=== PATIENT | female | born 1990 | race Caucasian/White ===

== ENCOUNTER 2016-05-21 10:51 | Emergency (ER) | payer OTHER ==
[~2016-05-21] VITALS: Ht 167.6 cm; Wt 100.0 kg
[2016-05-21 10:56] VITALS: BP 125/75; PULSE 87; RESP 16; O2SAT 96
[2016-05-21] MEDS ORDERED: 0.9% Sodium Chloride 1,000 ML IV ONE (11:07)
[2016-05-21] MEDS ORDERED: Pantoprazole 4 mg/mL 10 mL Inj IVPUSH ONE (11:10)
[2016-05-21 11:48] LABS: BASOPHILS % (AUTO) 0.2 % (0-3); EOSINOPHILS % (AUTO) 2.1 % (0-5); Mean Corpuscular Hemoglobin 25.9 pg (27.0-35.0); Mean Corpuscular Volume 80.3 fL (81-100); NEUTROPHILS % (AUTO) 61.4 % (40-74); Platelet Count 200 bil/L (150-400)
--- NOTE | 2016-05-21 12:09 | ED.REPORT ---
HPI-General Illness Date of Service May 21, 2016 ED Provider: Boston Beckett PA-C Dacia is a 25-year-old female with developmental disability who presents with multiple complaints. Patient states she has pain in her spinal cord from the top of her neck down to her feet. She describes the pain in her mid back as "sharp glass" and says it been lasting for 2 days She reports that she vomited this morning with a small amount of blood in it. She also reports she had a large, painful stool this morning with some bright red blood on the paper. She complains of a sore throat, ear pain and generalized abdominal pain as well as dysuria. She reports that she feels feverish and has body aches and a cough. Review of systems is diffusely positive. Patient states that she lives in [place] and is in [place] to visit her grandmother. She states that "they do not like me" at the emergency room [place]. She also states that "my friend had symptoms like these and they let her stay for 3 days, to make sure she got good care." Records indicates 8 visits to emergency departments in the region over the last 5 weeks. Nursing Notes Stated Complaint: PAIN Chief Complaint: General Complaint Nursing Notes Reviewed: Yes Allergies: Coded Allergies: Penicillins (Verified Allergy, Severe, Anaphylaxis, 05/21/16) General Time Seen by MD: 10:59 Chief Complaint Back pain Review of Systems Negative unless stated otherwise in history of present illness Physical Exam General: Well appearing, well developed, well nourished, no acute distress. Head: Atraumatic, normocephalic. No mastoid tenderness. Eyes: No scleral icterus or injection. No discharge. PERRL. Vision grossly intact. Ears: Pinna and tragus nontender with manipulation. External auditory canal patent, atraumatic and without discharge. Tympanic membrane treviño, shiny and translucent without fluid, bulging, retraction or perforation. Hearing grossly intact. Nose: Symmetrical, nares patent without discharge. No frontal or maxillary sinus tenderness. Mouth/pharynx: normal dentition, mucus membranes moist. Tonsils 2+ and symmetrical, uvula midline. Pharynx noninjected, no cobblestoning or discharge. Voice clear. Neck: No tenderness or lymphadenopathy. Trachea midline. Respiratory: No clinically evident cough. Regular rate and rhythm. Breath sounds present, clear to auscultation and equal bilaterally. Cardiovascular: Regular rate and rhythm, without murmur, gallop or rub. No pedal edema. Gastrointestinal: Extremely Mild diffuse tenderness without guarding or rebound. Bowel sounds normoactive. Rectum: Normal to inspection, no external hemorrhoids or fissures. Normal tone , no internal masses, no tenderness. Produces normal brown stool, no reese blood, guaiac-negative. Skin: Warm and dry. Back: Normal to inspection, no scoliosis, no tenderness to palpation. Neurological: Negative pronator drift. Deltoid abduction, wrist flexion and extension, finger flexion and abduction strength 5/5 B/L. Sensation to light touch intact over deltoid as well as first, third and fifth digits B/L. Biceps, triceps and brachioradialis reflexes 2+ B/L. Normal gait, toe walk, heel walk, Romberg. Hip flexion, knee extension, ankle dorsiflexion and plantarflexion strength 5/5 B/L. Patellar and Achilles reflexes present and equal B/L. Sensation to sharp touch intact at medial leg, dorsal foot and lateral foot B/L. negative straight leg raise, negative cross straight leg raise. Patient spontaneously raises both her legs show me her "swollen calves". Psychological: Alert and oriented. Speech appropriate, linear and logical. Very interested in being admitted to the hospital. Vital Signs Vital Signs Date Time Temp Pulse Resp B/P Pulse Ox O2 Delivery O2 Flow Rate FiO2 05/21/16 15:13 36.4 92 18 128/70 98 Room Air 05/21/16 15:03 36.4 92 18 129/74 98 Room Air 05/21/16 10:56 36.7 87 16 125/75 96 Room Air Initial VS: Reviewed, Vital signs normal Interpretation & Diagnostics Interpretation & Diagnostics: Influenza A & B are negative Stool guaiac negative Lab Results Interpretation Result Diagram: 05/21/16 1141 05/21/16 1141 Test 05/21/16 11:15 05/21/16 11:41 05/21/16 12:30 Urine Color Straw (YELLOW) Urine Appearance Hazy (CLEAR,HAZY) Urine pH 7.5 (5.0-8.0) Urine Specific [place] 1.020 (1.003-1.035) Urine Protein Negativemg/dL (NEG,TRACE) Urine Glucose (UA) Negativemg/dL (NEGATIVE) Urine Ketones Negativemg/dL (NEGATIVE) Urine Occult Blood Negative (NEGATIVE) Urine Nitrite Negative (NEGATIVE) Urine Bilirubin Negative (NEGATIVE) Urine Urobilinogen Normalmg/dL (NORMAL) Urine Leukocyte Esterase Negative (NEGATIVE) Urine RBC 0-2/hpf (0-2) Urine WBC 0-5/hpf (0-5) Urine Epithelial Cells Occasional/hpf (NONE-MOD) Urine Crystals None seen (NONE SEEN) Urine Bacteria Few/hpf (NONE-FEW) Urine Hyaline Casts None/lpf (NONE) Urine Granular Casts None seen (NONE SEEN) Urine Waxy Casts None seen (NONE SEEN) Urine Red Blood Cell Casts None seen (NONE SEEN) Urine White Blood Cell Casts None seen (NONE SEEN) Urine Mucus Present (None Seen) Urine Trichomonas None seen (NONE SEEN) Urine Yeast None (NONE SEEN) Urinalysis Comment None Urine Culture Reflexed Not indicated Hold Urine Received (Received) White Blood Count 8.0th/mm3 (3.8-10.1) Red Blood Count 4.51mil/mm3 (3.90-5.20) Hemoglobin 11.7g/dL (12.0-15.6) Hematocrit 36.2% (35.0-46.0) Mean Corpuscular Volume 80.3fL (81-100) Mean Corpuscular Hemoglobin 25.9pg (27.0-35.0) Mean Corpuscular Hemoglobin Concent 32.3% (32.0-37.0) Red Cell Distribution Width 15.9% (12.3-15.4) Platelet Count 200bil/L (150-400) Neutrophils (%) (Auto) 61.4% (40-74) Lymphocytes (%) (Auto) 26.2% (14-46) Monocytes (%) (Auto) 10.0% (4-12) Eosinophils (%) (Auto) 2.1% (0-5) Basophils (%) (Auto) 0.2% (0-3) Erythrocyte Sedimentation Rate 11mm/hr (0-32) Sodium Level 141mEq/L (134-144) Potassium Level 3.9mEq/L (3.5-5.2) Chloride Level 104mEq/L (97-108) Carbon Dioxide Level 24mmol/L (18-29) Blood Urea Nitrogen 14mg/dL (6-20) Creatinine 0.70mg/dL (0.57-1.00) Estimat Glomerular Filtration Rate 147mL/min (>59) Glucose Level 104mg/dL (60-99) Calcium Level 9.1mg/dL (8.5-10.1) Total Bilirubin 0.2mg/dL (0.0-1.2) Aspartate Amino Transf (AST/SGOT) 14U/L (0-50) Alanine Aminotransferase (ALT/SGPT) 17U/L (0-32) Alkaline Phosphatase 68U/L (25-150) Total Protein 6.8g/dL (6.4-8.4) Albumin 4.4g/dL (3.4-5.0) Hold Rod Top Tube Received (Received) Hold Purple Top Tube Received (Received) Hold Blue Top Tube Received (Received) Hold [place] Top Tube Received (Received) Re-Eval/Medical Decision Med Decision/Clinical Course 25-year-old female with developmental disability presents with multiple complaints, including "spinal cord pain" from the base of her skull to her feet. She also complains of vomiting this morning with a small amount of blood as well as painful stool with blood. Also complains of sore throat, ear pain, abdominal pain, dysuria, fever, myalgia. Physical exams extremely reassuring, with normal neurological examination, soft abdomen, negative stool guaiac and normal brown stool. I believe she has musculoskeletal back pain as opposed to meningitis or epidural abscess. I do not find it likely that she has an upper GI bleed. Flu swab is negative. Review of the records shows that she has many emergency department visits in the region over the last 6 weeks. She is very extended being admitted to the hospital and is disappointed when I tell her I had no justification for that. She tells me that she lives with a friend who helps her, but her friend is out of town this weekend. She tells me that the friend suggested she present to the emergency department and try to be admitted for the weekend. I arranged a foster care social worker consult. It is determined that she has a home in [place] but she does not want to be there because her roommate has many cats which father. She contacts the local homeless long-term but is denied a bed, likely because she has a home in [place]. She has a bus pass and is able to travel home. Discharged her with instructions for [id number] analgesia, advising primary care follow-up providing return precautions. Time of Eval: 12:47 Re-Evaluation/Progress Note: Patient states continued pain in her back. When I attempt to explain her normal physical exam findings to her, she asks "you are not going to discharge we are you? One of the reasons I keep coming to the hospital is because they will not admit me in [place]" Time of Eval: 13:11 Re-Evaluation/Progress Note: Discussed the possibility of admission with the patient. I told her that this time I see nothing to justify admitting her to the hospital. When I inquired about her living situation she tells me that she is developmentally disabled and lives with a friend who helps her keep track of taking medications. She further tells me that her Friend is out of town this weekend and suggested to her that she come to the hospital to be admitted "at least for the weekend." Patient admits she is worried because she does not know where to stay [facility]. I arranged social work referral. Discharge & Departure Primary Impression: Back pain Back pain location: back pain in unspecified location Chronicity: chronic Back pain laterality: unspecified Qualified Code: M54.9 - Dorsalgia, unspecified Disposition: Home Discharge Condition All VS Reviewed: Yes Condition: Stable Patient Instructions: Acute Low Back Pain (ED) Additional Instructions: Evaluation for several complaints in the emergency department. History, physical and labs were highly reassuring that you do not have meningitis or infection in your spine. Also reassuring that you do not have bleeding in your stomach or intestines. There is no history of trauma to suggest that we should perform x-rays or CT scan on your back today. I believe we have ruled out dangerous causes of your back pain and other symptoms. I do not see any reason to perform more testing or admit you to the hospital. You had a discussion with our foster care social worker, and it appears your best course of action will be to return home to [facility]. Rest your back as much as possible. The pain is best treated with 600 mg of ibuprofen (Advil, Motrin) every 6 hours, or 1000 mg of acetaminophen (Tylenol) every 6 hours. These drugs can be taken at the same time for more severe pain. Follow up with your primary care provider if your back pain continues. Return to emergency department for any new or worsening symptoms including numbness between your legs, loss of bowel control, high fever or increasing pain. Referrals: Ranjan Ng MD (Family) EDSupervising Provider for APC: Lalo Anglin DO copies to: Ranjan Ng MD, Seth PA-C May 21, 2016 12:08
[2016-05-21 13:58] LABS: APPEARANCE,URINE HAZY (CLEAR,HAZY); COLOR,URINE STRAW (YELLOW); OCCULT BLOOD,URINE NEGATIVE (NEGATIVE); PH,URINE 7.5 (5.0-8.0); UROBILINOGEN,URINE NORMAL (NORMAL)
[2016-05-21 15:03] VITALS: BP 129/74; PULSE 92; RESP 18; O2SAT 98
[2016-05-21 15:13] VITALS: BP 128/70; PULSE 92; RESP 18; O2SAT 98
== END 2016-05-21 15:20 | disposition home or self-care (01) ==
LOC: EDBD 10:51 → SED 10:51 → EDUNIT# 10:51 → SED 15:20
DX: M54.9 Dorsalgia, unspecified (principal); K92.0 Hematemesis; K92.1 Melena; J02.9 Acute pharyngitis, unspecified; H92.09 Otalgia, unspecified ear; R10.84 Generalized abdominal pain; R30.0 Dysuria; R50.9 Fever, unspecified; R05 Cough; M79.1 Myalgia; F81.9 Developmental disorder of scholastic skills, unspecified; Z88.0 Allergy status to penicillin
CPT/HCPCS: 36415; 80053; 81000; 81025; 82272; 85025; 85651; 87804; 96361; 96374; 96375; 99285; J7030

== ENCOUNTER 2016-07-17 12:22 | Emergency (ER) | payer OTHER ==
[~2016-07-17] VITALS: Ht 170.2 cm; Wt 110.9 kg
[2016-07-17 12:25] VITALS: BP 134/78; PULSE 75; RESP 16; O2SAT 97
[2016-07-17] MEDS ORDERED: FOLI1TAB18 PO (12:29)
[2016-07-17] MEDS ORDERED: CITA20TA11 PO (12:29)
[2016-07-17] MEDS ORDERED: FERR-83 PO (12:29)
[2016-07-17] MEDS ORDERED: OLAN5TAB PO (12:29)
--- NOTE | 2016-07-17 12:32 | ED.REPORT ---
HPI-Abd Pain F Under 40 Date of Service Jul 17, 2016 ED Provider: Shabnam Tsai MD Patient is a 25 year old female with a history of frequent ED visits for similar symptoms presenting to the ED complaining of abdominal pain onset two weeks ago. She describes the pain as feeling bloated or with a "hard abdomen." The patient admits to vomiting, nausea, chills and vaginal spotting but denies changes in appetite, changes in bladder or bowel habits, or fever. The patient is sexually active with one male partner and is currently not on control. She states that she does not have normal menstrual cycles and her last menstrual period was in 03/2016. The patient had a negative test at Urgent Care today. Nursing Notes Stated Complaint: ABD PAIN Chief Complaint: Female Abdominal Pain Nursing Notes Reviewed: Yes Allergies: Coded Allergies: Penicillins (Verified Allergy, Severe, Anaphylaxis, 07/17/16) latex (Verified Allergy, Intermediate, rash, 07/17/16) Scheduled Citalopram (Citalopram) 20 Mg Tablet 20 MG PO DAILY Ferrous Sulfate (Ferrous Sulfate) 325 Mg Tablet 325 MG PO DAILY Folic Acid (Folic Acid) 1 Mg Tablet 1 MG PO DAILY Olanzapine (Olanzapine) 5 Mg Tablet 5 MG PO DAILY Ondansetron ODT (Ondansetron ODT) 8 Mg Tab.rapdis 8 MG PO Q8H General Time Seen by MD: 12:32 Chief Complaint Abdominal pain Hx Obtained From: Patient Arrived By: Walk-in Sudden in Onset?: No Onset Occurred: More than a week ago... (2 weeks) Symptom Duration: Since onset Location: : Diffuse Severity: Current: Moderate Severity: Maximum: Moderate Recent Healthcare: Recent doctor visit Past Medical History Past Medical History frequent ED visits to different hospitals for similar symptoms Past Surgical History none reported Smoking History Unknown if Ever Smoker Social History Other Social History: Ambulatory Status Independent Review of Systems Review of Systems Note: bloating "stomach feels hard" denies changes in bowel or bladder habits Constitutional: Reports: Chills, Fever Respiratory: Denies: Non-productive cough GI: Reports: Abdominal pain, Nausea, Vomiting Female: Reports: Vaginal bleeding - abnl (spotting), Denies: Dysuria Complete sys rev & neg: except as marked. Physical Exam Initial Vital Signs Vital Signs (First) Date Time Temp Pulse Resp B/P Pulse Ox O2 Delivery O2 Flow Rate FiO2 07/17/16 12:25 36.6 75 16 134/78 97 Room Air Initial VS: Reviewed, Vital signs normal General/Constitutional: Awake, Alert, No acute distress Respiratory / Chest: Atraumatic, Breath sounds NL, Breath sounds = bilat, No respiratory distress Cardiovascular: Heart rate NL, Regular rhythm, Heart sounds NL Abdomen: Atraumatic, Soft slight distention general abdominal tenderness, no rebound or guarding Back: Atraumatic, Full range of motion Head / Eyes: Atraumatic, Normocephalic, PERRL, EOMI ENT: Atraumatic, Airway patent, Mucous membranes moist Skin: Atraumatic, Color NL, No rash, Warm, Dry Neurologic: Oriented X3, Speech NL, No motor deficits, No sensory deficits Neck: Atraumatic, Supple, Full range of motion Upper Extremity / MS: Atraumatic, Full range of motion Lower Extremity / Pelvis / MS: Atraumatic, Full range of motion Psychiatric: Affect NL, Mood NL Interpretation & Diagnostics Interpretation & Diagnostics: Abdomen US: IMPRESSION: No sonographic explanation for abdominal distension. No ascites. Dictated by: Bakari Florence M.D. on 07/17/2016 at 13:57 Approved by: Bakari Florence M.D. on 07/17/2016 at 13:58 Lab Results Interpretation Result Diagram: 07/17/16 1305 07/17/16 1305 Test 07/17/16 13:05 07/17/16 14:16 White Blood Count 6.6th/mm3 (3.8-10.1) Red Blood Count 4.51mil/mm3 (3.90-5.20) Hemoglobin 11.6g/dL (12.0-15.6) Hematocrit 36.2% (35.0-46.0) Mean Corpuscular Volume 80.3fL (81-100) Mean Corpuscular Hemoglobin 25.7pg (27.0-35.0) Mean Corpuscular Hemoglobin Concent 32.0% (32.0-37.0) Red Cell Distribution Width 15.7% (12.3-15.4) Platelet Count 220bil/L (150-400) Neutrophils (%) (Auto) 50.9% (40-74) Lymphocytes (%) (Auto) 35.0% (14-46) Monocytes (%) (Auto) 11.5% (4-12) Eosinophils (%) (Auto) 2.1% (0-5) Basophils (%) (Auto) 0.3% (0-3) Sodium Level 137mEq/L (134-144) Potassium Level 4.1mEq/L (3.5-5.2) Chloride Level 101mEq/L (97-108) Carbon Dioxide Level 23mmol/L (18-29) Blood Urea Nitrogen 15mg/dL (6-20) Creatinine 0.55mg/dL (0.57-1.00) Estimat Glomerular Filtration Rate 195mL/min (>59) Glucose Level 106mg/dL (60-99) Calcium Level 9.6mg/dL (8.5-10.1) Total Bilirubin 0.2mg/dL (0.0-1.2) Aspartate Amino Transf (AST/SGOT) 23U/L (0-50) Alanine Aminotransferase (ALT/SGPT) 31U/L (0-32) Alkaline Phosphatase 70U/L (25-150) Total Protein 6.5g/dL (6.4-8.4) Albumin 4.2g/dL (3.4-5.0) Lipase 44U/L (13-60) Hold Rod Top Tube Received (Received) Urine Color Yellow (YELLOW) Urine Appearance Clear (CLEAR,HAZY) Urine pH 5.5 (5.0-8.0) Urine Specific Echo 1.015 (1.003-1.035) Urine Protein Negativemg/dL (NEG,TRACE) Urine Glucose (UA) Negativemg/dL (NEGATIVE) Urine Ketones Negativemg/dL (NEGATIVE) Urine Occult Blood Negative (NEGATIVE) Urine Nitrite Negative (NEGATIVE) Urine Bilirubin Negative (NEGATIVE) Urine Urobilinogen Normalmg/dL (NORMAL) Urine Leukocyte Esterase Negative (NEGATIVE) Urine RBC 0-2/hpf (0-2) Urine WBC 0-5/hpf (0-5) Urine Epithelial Cells Few/hpf (NONE-MOD) Urine Crystals None seen (NONE SEEN) Urine Bacteria None/hpf (NONE-FEW) Urine Hyaline Casts None/lpf (NONE) Urine Granular Casts None seen (NONE SEEN) Urine Waxy Casts None seen (NONE SEEN) Urine Red Blood Cell Casts None seen (NONE SEEN) Urine White Blood Cell Casts None seen (NONE SEEN) Urine Mucus None seen (None Seen) Urine Trichomonas None seen (NONE SEEN) Urine Yeast None (NONE SEEN) Urinalysis Comment None Urine Culture Reflexed Not indicated X-Ray Abdominal Interpretation IMPRESSION: No radiographic explanation for abdominal distension. Dictated by: Bakari Florence M.D. on 07/17/2016 at 13:11 Approved by: Bakari Florence M.D. on 07/17/2016 at 13:12 Interpretation / Wet Read by: Interpret - Radiologist Re-Eval/Medical Decision Med Decision/Clinical Course The patient presents with some vague kind of symptoms, she has been seen in multiple hospitals for similar symptoms. Evaluation here was unremarkable. Differential diagnoses considered were abdominal tumor, obstruction, ascites, and ectopic. Patient's evaluation was unremarkable. The patient wanted to stay here to watch television and have a meal however she was discharged. Source of Hx: Old records Re-Evaluation/Progress : Time of Eval: 14:17 Patient Status: Condition improved Re-Evaluation/Progress Note: Pt rechecked, who is comfortable. The diagnosis and plan for discharge are discussed. The pt understands and agrees with the plan. All questions are addressed at this time. Counseled Regarding: Diagnosis, Lab results, Need for follow-up, When/why to return to ED Discharge & Departure Primary Impression: Abdominal pain of unknown etiology Disposition: Home Discharge Condition All VS Reviewed: Yes Condition: Stable Patient Instructions: Acute Abdominal Pain (ED) Additional Instructions: Work with your primary care physician to resolve this issue. You are not and have no signs of tumor or infection. Seek care if you develop any new or worsening symptoms. Referrals: [facility] (PCP) Alverto Attestation Portions of this note were transcribed by Tere Parra and Sarabjit Sheldon. I, Dr. Tsai personally performed the history, physical exam and medical decision- making; I reviewed and confirmed the accuracy of the information in the transcribed note. Signed by: Alverto Peter, 07/17/16 and 1632. copies to: [facility] Jena M MD Jul 17, 2016 12:32 Vickie Parra Jul 17, 2016 12:47 SARABJIT SHELDON Jul 17, 2016 14:23 Dr. Tsai personally performed the history, physical exam and medical decision- making; I reviewed and confirmed the accuracy of the information in the transcribed note. Signed by: Tere Parra and Alverto Fraser, 07/17/16 and 1341 copies to: [facility] J[facility] M MD Jul 17, 2016 12:32 Vickie Parra Jul 17, 2016 12:47 SARABJIT SHELDON Jul 17, 2016 14:23
--- NOTE | 2016-07-17 13:13 | DRSVH ---
PROCEDURE: X-RAY ACUTE ABDOMINAL SERIES ([id number]) INDICATIONS: 25-year-old female with abdominal distension. TECHNIQUE: One view chest and two views of the abdomen were acquired. COMPARISON: None. FINDINGS: Surgical changes and devices: None. Chest: Lungs are clear. Heart size is normal. No pleural effusions. No pneumoperitoneum. Abdomen: Bowel gas pattern is normal, with scattered stool within the colon. No suspicious calcific ations. Visualized solid organ contours appear normal. Bones: No suspicious bony lesions. There is mild lumbar spine dextroscoliosis. IMPRESSION: No radiographic explanation for abdominal distension. Dictated by: Bakari Florence M.D. on 07/17/2016 at 13:11 Approved by: Bakari Florence M.D. on 07/17/2016 at 13:12
[2016-07-17 13:20] LABS: BASOPHILS % (AUTO) 0.3 % (0-3); EOSINOPHILS % (AUTO) 2.1 % (0-5); MONOCYTES % (AUTO) 11.5 % (4-12); Mean Corpuscular Hemoglobin 25.7 pg (27.0-35.0); Mean Corpuscular Volume 80.3 fL (81-100); NEUTROPHILS % (AUTO) 50.9 % (40-74); Platelet Count 220 bil/L (150-400)
--- NOTE | 2016-07-17 14:00 | DRSVH ---
PROCEDURE: US ABDOMEN, LIMITED ([id number]) INDICATIONS: 25-year-old female with abdominal distension. TECHNIQUE: Real-time focused scanning was performed of the abdomen, with image documentation. COMPARISON: [facility], CR, XR ABD ACUTE SERIES 3VW, 07/17/2016, 12:51. FINDINGS: No free abdominal fluid. Liver appears normal in overall size. Dominant right adnexal fo llicular cyst is incidentally noted. IMPRESSION: No sonographic explanation for abdominal distension. No ascites. Dictated by: Bakari Florence M.D. on 07/17/2016 at 13:57 Approved by: Bakari Florence M.D. on 07/17/2016 at 13:58
[2016-07-17] MEDS ORDERED: ONDA8TAB10 PO (14:30)
[2016-07-17 14:33] LABS: APPEARANCE,URINE CLEAR (CLEAR,HAZY); COLOR,URINE YELLOW (YELLOW); OCCULT BLOOD,URINE NEGATIVE (NEGATIVE); PH,URINE 5.5 (5.0-8.0); UROBILINOGEN,URINE NORMAL (NORMAL)
[2016-07-17 14:36] VITALS: BP 10/84; PULSE 72; RESP 16; O2SAT 100
== END 2016-07-17 14:37 | disposition home or self-care (01) ==
LOC: SED 12:22
DX: R10.9 Unspecified abdominal pain (principal); Z88.0 Allergy status to penicillin; Z91.040 Latex allergy status

== ENCOUNTER 2016-07-28 13:26 | Emergency (ER) | payer OTHER ==
[~2016-07-28] VITALS: Ht 167.6 cm; Wt 90.9 kg
[~2016-07-28 13:26] MED LIST: CITA20TA11 PO; FERR-83 PO; FOLI1TAB18 PO; OLAN5TAB PO; ONDA8TAB10 PO
[2016-07-28 13:34] VITALS: BP 131/84; PULSE 87; RESP 16; O2SAT 100
[2016-07-28 15:45] LABS: BASOPHILS % (AUTO) 0.2 % (0-3); MONOCYTES % (AUTO) 11.3 % (4-12); Mean Corpuscular Volume 80.3 fL (81-100); NEUTROPHILS % (AUTO) 53.8 % (40-74); Platelet Count 217 bil/L (150-400)
--- NOTE | 2016-07-28 17:05 | ED.REPORT ---
HPI-Seizure Date of Service Jul 28, 2016 ED Provider: Wade Beasley MD Patient is a 25-year-old woman who presents to the [facility] emergency department from urgent care with complaint of seizure this morning around midnight reportedly witnessed by her who is not present, she also states that she may be . She says her last period was in March , this would be her second and states she is feeling similar symptoms as her previous such as nausea and vomiting, hot flashes, and right lower quadrant pain. She states she took a home test one week ago that was positive, and conveys that she tried to contact her primary care doctor but was unable to get an appointment, she has not been taking vitamins or had any care. Last period in March was described as being more blood than normal. In regards to seizure she describes it as causing her to shake, did not completely lose consciousness, and had residual leg shaking for several minutes to hours following described event. She lives in [place] and reports being told by her primary care doctor to go down to [place] to be seen in urgent care there. Patient stated "yes" to all ROS questions. Nursing Notes Stated Complaint: SEIZURE Chief Complaint: Seizure Allergies: Coded Allergies: Penicillins (Verified Allergy, Severe, Anaphylaxis, 07/17/16) latex (Verified Allergy, Intermediate, rash, 07/17/16) Scheduled Citalopram (Citalopram) 20 Mg Tablet 20 MG PO DAILY Ferrous Sulfate (Ferrous Sulfate) 325 Mg Tablet 325 MG PO DAILY Folic Acid (Folic Acid) 1 Mg Tablet 1 MG PO DAILY Olanzapine (Olanzapine) 5 Mg Tablet 5 MG PO DAILY Ondansetron ODT (Ondansetron ODT) 8 Mg Tab.rapdis 8 MG PO Q8H General Time Seen by Provider: 15:26 Chief Complaint Chief Complaint: Seizure, generalized Hx Obtained From: Patient, Primary care provider Similar Sx Previous: Yes Past Medical History Past Medical History frequent ED visits to different hospitals for similar symptoms From patient: "Memory loss" Claims to be on thyroid medications GERD Past Surgical History 2014 Family History Noncontributory Smoking History Never Smoker Social History Alcohol Use: Denies alcohol use Drug Use: Denies drug use Other Social History: Ambulatory Status Independent Review of Systems Complete sys rev & neg: except as marked. Physical Exam General: Laying in bed, no apparent distress. Obese HEENT: Normocephalic, atraumatic, EOMI grossly, Cardiovascular: Regular rate and rhythm, no clicks murmurs rubs, peripheral pulses 2/4 equal bilaterally Pulmonary: Clear to auscultation bilaterally, no W/R/R. Abdominal: Soft to palpation, bowel sounds present 4, no hepatosplenomegaly. Negative rebound. States some tenderness and right lower quadrant. : Unable to appreciate uterus. Extremities: No edema appreciated. No tenderness, asymmetry. Neuro: Neurologically grossly intact, strength is equal bilaterally upper and lower extremities. MSK: Gait is normal, able to move extremities on their own volition, strength 5 out of 5 equal bilaterally to upper and lower extremities. Psych: Patient's memory recollection of events is inconsistent. She has a nunez positive ROS, Initial Vital Signs Vital Signs (First) Date Time Temp Pulse Resp B/P Pulse Ox O2 Delivery O2 Flow Rate FiO2 07/28/16 13:34 36.3 87 16 131/84 100 Room Air Initial VS: Reviewed Interpretation & Diagnostics Lab Results Interpretation Result Diagram: 07/28/16 1540 07/28/16 1540 Test 07/28/16 15:40 White Blood Count 8.7th/mm3 (3.8-10.1) Red Blood Count 4.61mil/mm3 (3.90-5.20) Hemoglobin 12.0g/dL (12.0-15.6) Hematocrit 37.0% (35.0-46.0) Mean Corpuscular Volume 80.3fL (81-100) Mean Corpuscular Hemoglobin 26.0pg (27.0-35.0) Mean Corpuscular Hemoglobin Concent 32.4% (32.0-37.0) Red Cell Distribution Width 15.9% (12.3-15.4) Platelet Count 217bil/L (150-400) Neutrophils (%) (Auto) 53.8% (40-74) Lymphocytes (%) (Auto) 32.6% (14-46) Monocytes (%) (Auto) 11.3% (4-12) Eosinophils (%) (Auto) 2.0% (0-5) Basophils (%) (Auto) 0.2% (0-3) Sodium Level 136mEq/L (134-144) Potassium Level 3.9mEq/L (3.5-5.2) Chloride Level 99mEq/L (97-108) Carbon Dioxide Level 22mmol/L (18-29) Blood Urea Nitrogen 16mg/dL (6-20) Creatinine 0.66mg/dL (0.57-1.00) Estimat Glomerular Filtration Rate 158mL/min (>59) Glucose Level 102mg/dL (60-99) Calcium Level 9.4mg/dL (8.5-10.1) Magnesium Level 2.0mg/dL (1.6-2.6) Total Bilirubin 0.2mg/dL (0.0-1.2) Aspartate Amino Transf (AST/SGOT) 26U/L (0-50) Alanine Aminotransferase (ALT/SGPT) 47U/L (0-32) Alkaline Phosphatase 70U/L (25-150) Total Protein 6.9g/dL (6.4-8.4) Albumin 4.1g/dL (3.4-5.0) HCG Beta Subunit < 0.5mIU/mL Hold Rod Top Tube Received (Received) Lab Results Interpretation: Serum test negative Re-Eval/Medical Decision Med Decision/Clinical Course BAND TACKER evaluate the patient, stated consistent history with personality disorder, reviewed medical database showed that she had 19 ER visits in the last year for similar symptoms. Discussed with primary care provider need for psychiatric follow-up. Findings were discussed with the patient along with negative test, recommendation of follow-up primary care provider. Patient stated she needed to catch a bus to get back to [place] and wanted to leave before receiving paperwork. Re-Evaluation/Progress : Re-Evaluation/Progress Note: Patient was evaluated by BAND TACKERBibi who stated she appears to have a personality disorder and requires further diagnostic evaluation by psychiatrist. There is no reason to keep the patient as there appears to be no risk to self or others. Consultation : Consulted With: Primary care physician Note: Spoke with Dr. Dariusz Go [facility] in [facility]. He gave the additional history that the patient has been seen several times in the emergency department in [place] with vague abdominal complaints, and concern for . He also says that she consistently believe she is , and one instance as recorded heart sounds from the Internet on to her phone and then played back the recording to health professionals stating that it was her child's heartbeat. Dr. Go recommended psych evaluation for the patient which she has declined. He also conveys that her partner enables and feeds into her delusions. Counseled Regarding: Diagnosis, Lab results, Need for follow-up Discharge & Departure Impression: Primary Impression: Personality disorder in adult Additional Impressions: Delusion of Spells of trembling Disposition: Home Discharge Condition All VS Reviewed: Yes Condition: Stable Additional Instructions: Patient left, declining written patient plan. Referrals: [facility] OLGA ROUSSEAU Attending Statement Examined with Dr Alicia on 07/28. "spell" of tremors last night, not likely a seizure. Not . did not want to stay for written DC instructions, is advised to follow up with primary care. copies to: [facility] OLGA ROUSSEAU Noah M DO Jul 28, 2016 15:48 Wade Beasley MD Jul 29, 2016 00:45
== END 2016-07-28 17:07 | disposition home or self-care (01) ==
LOC: SED 13:26
DX: F60.9 Personality disorder, unspecified (principal); F22 Delusional disorders; R25.1 Tremor, unspecified; Z88.0 Allergy status to penicillin; Z91.040 Latex allergy status

== ENCOUNTER 2016-08-12 11:08 | Emergency (ER) | payer OTHER ==
[~2016-08-12] VITALS: Ht 170.2 cm; Wt 90.1 kg
[2016-08-12 11:10] VITALS: BP 122/78; PULSE 85; RESP 14; O2SAT 97
--- NOTE | 2016-08-12 11:20 | ED.REPORT ---
HPI-General Illness Date of Service Aug 12, 2016 ED Provider: Dr. Tsai A 26 year old female presents to the ED c/o sharp lower abdominal pain onset a couple days ago when she was checked for urine infection. Pain wraps around her waist. Associated symptoms include middle back pain "right below spine", mild headache, dysuria, frequency with decreased urine output, chills, subjective fever, nausea, vomitx3, diarrhea, and constipation. He last BM was this morning and stool was soft. Per nurse, she has been complaining of an animal moving around inside of her thought to be the "nitrates" she was told she had at doctor visit. Nursing Notes Stated Complaint: ABD PAIN Chief Complaint: Female Abdominal Pain Nursing Notes Reviewed: Yes Allergies: Coded Allergies: Penicillins (Verified Allergy, Severe, Anaphylaxis, 08/12/16) latex (Verified Allergy, Intermediate, rash, 08/12/16) Scheduled Citalopram (Citalopram) 20 Mg Tablet 20 MG PO DAILY Ferrous Sulfate (Ferrous Sulfate) 325 Mg Tablet 325 MG PO DAILY Folic Acid (Folic Acid) 1 Mg Tablet 1 MG PO DAILY Olanzapine (Olanzapine) 5 Mg Tablet 5 MG PO DAILY Ondansetron ODT (Ondansetron ODT) 8 Mg Tab.rapdis 8 MG PO Q8H Ondansetron ODT (Ondansetron ODT) 8 Mg Tab.rapdis 8 MG PO Q8H Phenazopyridine (Phenazopyridine #3PP) 200 Mg Tab 200 MG PO Q8H General Time Seen by MD: 11:20 Chief Complaint Abdominal pain Hx Obtained From: Patient, EMS Arrived By: Ambulance Sudden in Onset?: No Onset Occurred: 3 days ago (a couple of days ago) Symptom Duration: Since onset Location: : Abdomen Radiation: : Abdomen ("wraps around waist") Severity: Current: Moderate Severity: Maximum: Moderate Recent Healthcare: Recent doctor visit Similar Sx Previous: No Past Medical History Past Medical History frequent ED visits to different hospitals for similar symptoms From patient: "Memory loss" Claims to be on thyroid medications GERD Past Surgical History 2014 Family History Noncontributory Smoking History Never Smoker Social History Alcohol Use: Denies alcohol use Drug Use: Denies drug use Other Social History: Ambulatory Status Independent Review of Systems Full Review of Systems Constitutional: Reports: Chills, Fever (subjective) Respiratory: Denies: Non-productive cough GI: Reports: Abdominal pain, Constipation, Diarrhea, Nausea, Vomiting Female: Reports: Dysuria, Urinary frequency Musculoskeletal: Reports: Back pain Neurologic: Reports: Headache Complete sys rev & neg: except as marked. Physical Exam Vital Signs Vital Signs Date Time Temp Pulse Resp B/P Pulse Ox O2 Delivery O2 Flow Rate FiO2 08/12/16 13:07 37.2 67 20 117/75 98 Room Air 08/12/16 11:10 36.2 85 14 122/78 97 Room Air Initial VS: Reviewed General/Constitutional: Awake, Alert Head / Eyes: Atraumatic, Normocephalic, PERRL, EOMI ENT: Atraumatic, Mucous membranes moist Respiratory / Chest: Atraumatic, Breath sounds NL, Breath sounds = bilat, No respiratory distress, No rales, No rhonchi, No wheezing Cardiovascular: Heart rate NL, Regular rhythm, Heart sounds NL, No gallop, No murmurs, No rubs Abdomen: Atraumatic, Soft, Non-tender, No guarding, No rebound Back: Atraumatic, No CVA tenderness Upper Extremities Upper Extremity / MS: Atraumatic, Inspection NL, Full range of motion, No swelling, Neurologic intact, No edema Lower Extremity / Pelvis / MS: Atraumatic, Inspection NL, Full range of motion , No swelling, Neurologic intact, No edema Skin: Warm, Dry Interpretation & Diagnostics Lab Results Interpretation Test 08/12/16 11:55 Urine Color Red (YELLOW) Urine Appearance Turbid (CLEAR,HAZY) Urine pH 6.5 (5.0-8.0) Urine Specific [place] 1.020 (1.003-1.035) Urine Protein 100mg/dL (NEG,TRACE) Urine Glucose (UA) Negativemg/dL (NEGATIVE) Urine Ketones Negativemg/dL (NEGATIVE) Urine Occult Blood Large (NEGATIVE) Urine Nitrite Negative (NEGATIVE) Urine Bilirubin Negative (NEGATIVE) Urine Urobilinogen Normalmg/dL (NORMAL) Urine Leukocyte Esterase Negative (NEGATIVE) Urine RBC >50/hpf (0-2) Urine WBC 6-10/hpf (0-5) Urine Epithelial Cells Many/hpf (NONE-MOD) Urine Crystals None seen (NONE SEEN) Urine Bacteria Moderate/hpf (NONE-FEW) Urine Hyaline Casts None/lpf (NONE) Urine Granular Casts None seen (NONE SEEN) Urine Waxy Casts None seen (NONE SEEN) Urine Red Blood Cell Casts None seen (NONE SEEN) Urine White Blood Cell Casts None seen (NONE SEEN) Urine Mucus Present (None Seen) Urine Trichomonas None seen (NONE SEEN) Urine Yeast None (NONE SEEN) Urinalysis Comment Amorphous sediment Urine Culture Reflexed Indicated Re-Eval/Medical Decision Med Decision/Clinical Course The patient continues to have symptoms after starting antibiotics yesterday, she was concerned for worsening infection. She does have signs of infection but there are no nitrates and she does recall that she had nitrates yesterday. It appears that her antibiotic is working. She does not have signs of pyelonephritis. Source of Hx: Old records, EMS Time of Eval: 12:48 Patient Status: Condition improved Re-Evaluation/Progress Note: Rechecked patient, explained test results, diagnosis, and plan for discharge. Patient understands and agrees with the plan. All questions addressed. Counseled Regarding: Diagnosis, Lab results, Need for follow-up, When/why to return to ED Discharge & Departure Primary Impression: UTI (urinary tract infection) Urinary tract infection type: acute cystitis Hematuria presence: with hematuria Qualified Code: N30.01 - Acute cystitis with hematuria Disposition: Home Discharge Condition All VS Reviewed: Yes Condition: Improved Patient Instructions: Urinary Tract Infection in Women (ED) Additional Instructions: You have a urinary tract infection and the antibiotic is working, you no longer have nitrates in your urine. Continue to use antibiotic and drink plenty of fluids. Seek care or return to the emergency department for any fever, increasing pain, or any new or concerning symptoms. Referrals: Shashank Matias MD (PCP) Karstenibtracy Attestation Portions of this note were transcribed by Pardeep Mcmanus. I, Dr. Tsai personally performed the history, physical exam and medical decision-making; I reviewed and confirmed the accuracy of the information in the transcribed note. Signed by: Alverto eFliz, 08/12/2016, 1304. copies to: Shashank Matias MD, Jena M MD Aug 12, 2016 11:20 Pardeep Mcmanus Aug 12, 2016 11:27
[2016-08-12 12:35] LABS: APPEARANCE,URINE TURBID (CLEAR,HAZY); COLOR,URINE RED (YELLOW); OCCULT BLOOD,URINE LARGE (NEGATIVE); PH,URINE 6.5 (5.0-8.0); UROBILINOGEN,URINE NORMAL (NORMAL)
[2016-08-12] MEDS ORDERED: Phenazopyridine 97.5 mg Tablet PO ONE (12:40)
[2016-08-12] MEDS ORDERED: ONDA8TAB10 PO (12:44)
[2016-08-12 13:07] VITALS: BP 117/75; PULSE 67; RESP 20; O2SAT 98
[2016-08-12] MEDS ORDERED: PHEN-777 PO (13:13)
== END 2016-08-12 13:08 | disposition home or self-care (01) ==
LOC: SED 11:08
DX: N30.01 Acute cystitis with hematuria (principal); K21.9 Gastro-esophageal reflux disease without esophagitis; Z91.040 Latex allergy status; Z88.0 Allergy status to penicillin

== ENCOUNTER 2016-08-23 10:02 | Emergency (ER) | payer OTHER ==
[~2016-08-23] VITALS: Ht 167.6 cm; Wt 113.6 kg
[~2016-08-23 10:02] MED LIST changes: +PHEN-777 PO
[2016-08-23 10:06] VITALS: BP 137/80; PULSE 95; RESP 18; O2SAT 97
--- NOTE | 2016-08-23 10:49 | ED.REPORT ---
HPI-General Illness Date of Service August 23, 2016 ED Provider: Lalo Anglin DO 26 year old female with a history of frequent ER visits for similar symptoms presents to the ER complaining of abdominal pain and vomiting onset this morning. Associated symptom of dysuria. She called her primary care physician regarding her symptoms and she was referred to the department here. Patient also reports muscular back pain, and recent left ankle injury. Nursing Notes Stated Complaint: VOMITING Chief Complaint: Female Abdominal Pain Nursing Notes Reviewed: Yes Allergies: Coded Allergies: Penicillins (Verified Allergy, Severe, Anaphylaxis, 08/12/16) latex (Verified Allergy, Intermediate, rash, 08/12/16) Scheduled Citalopram (Citalopram) 20 Mg Tablet 20 MG PO DAILY Ferrous Sulfate (Ferrous Sulfate) 325 Mg Tablet 325 MG PO DAILY Folic Acid (Folic Acid) 1 Mg Tablet 1 MG PO DAILY Olanzapine (Olanzapine) 5 Mg Tablet 5 MG PO DAILY Ondansetron ODT (Ondansetron ODT) 8 Mg Tab.rapdis 8 MG PO Q8H Ondansetron ODT (Ondansetron ODT) 8 Mg Tab.rapdis 8 MG PO Q8H Phenazopyridine (Phenazopyridine #3PP) 200 Mg Tab 200 MG PO Q8H Scheduled PRN Ondansetron ODT (Zofran ODT) 4 Mg Tablet 4 MG PO Q4H PRN PRN For Nausea General Time Seen by MD: 10:49 Chief Complaint Vomiting Hx Obtained From: Patient Arrived By: Walk-in Sudden in Onset?: No Onset Occurred: 1 - 4 hours ago Symptom Duration: Since onset Location: : Abdomen Quality: Painful Severity: Current: Moderate Severity: Maximum: Moderate Pertinent Negative: Pt denies other symptoms Recent Healthcare: Recent doctor visit Similar Sx Previous: Yes Past Medical History Past Medical History frequent ED visits to different hospitals for similar symptoms From patient: "Memory loss" Claims to be on thyroid medications GERD Past Surgical History 2014 Family History Noncontributory Smoking History Never Smoker Social History Alcohol Use: Denies alcohol use Drug Use: Denies drug use Other Social History: Ambulatory Status Independent Review of Systems Full Review of Systems Constitutional: Denies: Chills, Fever GI: Reports: Abdominal pain, Nausea, Vomiting, Denies: Constipation, Diarrhea Female: Reports: Dysuria Musculoskeletal: Reports: Joint pain (Left Ankle Pain), Lumbar pain Complete sys rev & neg: except as marked. Physical Exam Vital Signs Vital Signs Date Time Temp Pulse Resp B/P Pulse Ox O2 Delivery O2 Flow Rate FiO2 08/23/16 10:06 36.2 95 18 137/80 97 Initial VS: Reviewed Head / Eyes: Atraumatic, Normocephalic, PERRL Neck: Supple, Non-tender, Full range of motion Respiratory: Breath sounds normal, Clear to auscultation, No respiratory distress Cardiovascular: Regular rate & rhythm, Heart sounds normal, Intact distal pulses Extremities: Vascular intact, Neuro intact, No swelling, No tenderness Skin: Warm, Dry, No cyanosis Neurologic: Alert, Oriented, Nonfocal General/Constitutional: Awake, Alert, Well developed, Well nourished Appearance / Presentation: Positive: Obese Abdomen: Soft, Non-tender, No guarding, No rebound, No distention Interpretation & Diagnostics Lab Results Interpretation Test 08/23/16 11:24 Lab Results Interpretation: Urine dip negative for , infection, and blood. Re-Eval/Medical Decision Med Decision/Clinical Course Patient has a wandering and ongoing list of medical complaints that are vague and do not seem to be supported much by any physical exam. Her abdominal exam is normal without focal rebound guarding or tenderness in any of the 4 quadrants. She reportedly had nausea and vomiting this morning however she arrives drinking a cup of coffee. She complains of ankle pain with a normal steady gait and reportedly had a minor injury recently to the ankle. I do not suspect any emergent medical condition and this patient is medically stable for discharge. A written prescription for Zofran has been given. Consultation : Consulted With: tail worker Call Returned at: 11:05 Director Of Cardiology: Will see patient Note: Discussed patient case with SD Villarreal. Counseled Regarding: Diagnosis, Lab results, Need for follow-up, When/why to return to ED Discharge & Departure Primary Impression: Nausea Disposition: Home Discharge Condition All VS Reviewed: Yes Condition: Stable Additional Instructions: Follow-up with your primary care doctor for further evaluation. Take Zofran as prescribed for nausea. Avoid foods that could upset your stomach. The ER is always available for life-threatening emergencies. Referrals: Shashank Matias MD (PCP) Scribe Attestation Portions of this note were transcribed by Rahat Hennessy. I, Dr. Anglin, personally performed the history, physical exam and medical decision-making; I reviewed and confirmed the accuracy of the information in the transcribed note. Signed by: Alverto Perez, 08/23/2016 at 11:42 copies to: Shashank Matias MD, Timothy S DO August 23, 2016 10:49 RAHAT HENNESSY August 23, 2016 10:56
[2016-08-23] MEDS ORDERED: ONDA4TAB9 PO (11:28)
--- NOTE | 2016-08-23 14:14 | NUR ---
Social Work Note Ena Gamble is a 26 yr old who came to ED from home in [place]. She took the bus to [place] because she states that she was supposed to come to [facility] to have a test and she got to the appointment too late. She presents stating that she is nauseous, has stomach pains. EMR reviewed: Pt has had 21 ED visits per VEENA in the past year. She often comes to ED for non-emergent issues. TURNER SPLITTER MACHINE OPERATOR met with pt - Pt known from previous ED visits. Pt lives with her in [place]. She states that her family lives in [place] and she often takes the bus to visit friends and family or to come to the hospital. She admits that she likes [facility] better than [facility]. Pt states that she called her PCP today who could not get her in for a same day appointment. She was recently seen for a UTI. She took all of her antibiotics but is nervous that there are "animals living in my stomach that are eating me". After more conversation, she states that MD talked about the bacteria in her urine as bugs. Pt admits that she often gets confused, that she has a phone but does not know how to use her calendar and often misses appointments. Pt may have a developmental delay - Pt states that she sees a counselor at [facility], but she dropped her classes because her anxiety was too great. TURNER SPLITTER MACHINE OPERATOR attempted to coordinate care with Vandana in [place] - left a message for Vandana . TURNER SPLITTER MACHINE OPERATOR referred pt to [facility] as a possible referral for intensive case management. MD provided pt with rx for Zofran - no other needs. TURNER SPLITTER MACHINE OPERATOR educated Pt on appropriate ED visits. Pt d/c to the bus station. TATIANNA Villarreal
== END 2016-08-23 11:46 | disposition home or self-care (01) ==
LOC: SED 10:02
DX: R11.0 Nausea (principal); K21.9 Gastro-esophageal reflux disease without esophagitis; Z79.899 Other long term (current) drug therapy; Z88.0 Allergy status to penicillin; Z91.040 Latex allergy status

== ENCOUNTER 2016-08-25 10:23 | Emergency (ER) | payer OTHER ==
[~2016-08-25] VITALS: Ht 167.6 cm; Wt 113.6 kg
[~2016-08-25 10:23] MED LIST changes: +ONDA4TAB9 PO
[2016-08-25 10:29] VITALS: BP 127/86; PULSE 98; RESP 16; O2SAT 97
--- NOTE | 2016-08-25 10:40 | ED.REPORT ---
HPI-Back Pain Under 40 Date of Service August 25, 2016 ED Provider: Dennis Suarez MD A 26 year old female with a history of GERD, asthma, and multiple ED visits presents with abdominal pain onset "a couple of days ago." Associated symptoms include bilateral flank pain, nausea, vomiting, subjective fever, diarrhea, and urinary frequency. The patient denies other symptoms. She has been taking an antibiotic for a kidney infection. The patient was seen in the ED two days ago with similar symptoms. She was then seen by her PCP yesterday who recommended she come to the ED today. She produces a letter provided by her primary care doctor on letter had from yesterday encouraging her to come to the emergency department today if her symptoms had not improved. Nursing Notes Stated Complaint: ACUTE KIDNEY INFECTION Chief Complaint: Back Pain or Injury Nursing Notes Reviewed: Yes Allergies: Coded Allergies: Penicillins (Verified Allergy, Severe, Anaphylaxis, 08/12/16) latex (Verified Allergy, Intermediate, rash, 08/12/16) Scheduled Citalopram (Citalopram) 20 Mg Tablet 20 MG PO DAILY Ferrous Sulfate (Ferrous Sulfate) 325 Mg Tablet 325 MG PO DAILY Folic Acid (Folic Acid) 1 Mg Tablet 1 MG PO DAILY Olanzapine (Olanzapine) 5 Mg Tablet 5 MG PO DAILY Ondansetron ODT (Ondansetron ODT) 8 Mg Tab.rapdis 8 MG PO Q8H Ondansetron ODT (Ondansetron ODT) 8 Mg Tab.rapdis 8 MG PO Q8H Phenazopyridine (Phenazopyridine #3PP) 200 Mg Tab 200 MG PO Q8H Scheduled PRN Ondansetron ODT (Zofran ODT) 4 Mg Tablet 4 MG PO Q4H PRN PRN For Nausea General Time Seen by MD: 10:37 Chief Complaint Other (Abdominal Pain) Hx Obtained From: Patient Arrived By: Walk-in Sudden in Onset?: No Onset Occurred: 2 days ago ("A couple of days ago") Symptom Duration: Since onset Location: : Flank bilateral: Generalized (Abdominal pain) Quality: Painful Severity: Current: Moderate Severity: Maximum: Moderate Pertinent Negative: Relieved by nothing Recent Healthcare: Recent doctor visit Similar Sx Previous: Yes Past Medical History Past Medical History Frequent ED visits to different hospitals for nausea, vomiting, From patient: "Memory loss" Claims to be on thyroid medications GERD Meningitis Asthma Past Surgical History 2014 Family History Noncontributory Smoking History Never Smoker Social History Alcohol Use: Denies alcohol use Drug Use: Denies drug use Other Social History: Frequent ED visitor, Ambulatory Status Independent Review of Systems Constitutional: Reports: Fever (Subjective) Respiratory: Denies: Non-productive cough, Shortness of breath GI: Reports: Abdominal pain, Diarrhea, Nausea Female: Reports: Flank pain (Bilateral), Urinary frequency Complete sys rev & neg: except as marked. Physical Exam Initial Vital Signs Vital Signs (First) Date Time Temp Pulse Resp B/P Pulse Ox O2 Delivery O2 Flow Rate FiO2 08/25/16 10:29 36.6 98 16 127/86 97 Room Air Head / Eyes: Atraumatic, Normocephalic ENT: Conjunctiva normal, No scleral icterus Neck: Supple, Full range of motion Skin: Warm, Dry, No cyanosis General/Constitutional: Awake, Alert Neurologic: Oriented X3, Speech NL Respiratory / Chest: Breath sounds NL, Breath sounds = bilat, No respiratory distress Cardiovascular: Heart rate NL, Regular rhythm, Heart sounds NL Lower Ext Edema: Positive: Bilateral 1+ Abdomen: Soft, No guarding Tenderness/Guarding/Rebound: Positive: Tender diffuse (Mild) Psychiatric: Mood NL Abnormal Mood/Affect: Positive: Flat affect Interpretation & Diagnostics URINE : Negative URINE DIPSTICK: Bedside Urine Specific [place] * 1.010 Bedside Urine pH * 7 Bedside Urine Leukocyte Esterase * Negative Bedside Urine Nitrite * Negative Bedside Urine Protein * Negative Bedside Urine Glucose * Normal Bedside Urine Ketones * Negative Bedside Urine Urobilinogen * Normal Bedside Urine Bilirubin * Negative Bedside Urine Occult Blood * Negative Urine to Lab * Yes Lab Results Interpretation Test 08/25/16 11:00 Urine Color Yellow (YELLOW) Urine Appearance Hazy (CLEAR,HAZY) Urine pH 7.0 (5.0-8.0) Urine Specific [place] 1.020 (1.003-1.035) Urine Protein Negativemg/dL (NEG,TRACE) Urine Glucose (UA) Negativemg/dL (NEGATIVE) Urine Ketones Negativemg/dL (NEGATIVE) Urine Occult Blood Negative (NEGATIVE) Urine Nitrite Negative (NEGATIVE) Urine Bilirubin Negative (NEGATIVE) Urine Urobilinogen Normalmg/dL (NORMAL) Urine Leukocyte Esterase Negative (NEGATIVE) Urine RBC 0-2/hpf (0-2) Urine WBC 0-5/hpf (0-5) Urine Epithelial Cells Moderate/hpf (NONE-MOD) Urine Crystals Amorphous phosphates Urine Bacteria Few/hpf (NONE-FEW) Urine Hyaline Casts None/lpf (NONE) Urine Granular Casts None seen (NONE SEEN) Urine Waxy Casts None seen (NONE SEEN) Urine Red Blood Cell Casts None seen (NONE SEEN) Urine White Blood Cell Casts None seen (NONE SEEN) Urine Mucus None seen (None Seen) Urine Trichomonas None seen (NONE SEEN) Urine Yeast None (NONE SEEN) Urinalysis Comment None Urine Culture Reflexed Not indicated Re-Eval/Medical Decision Re-Evaluation/Progress : Time of Eval: 13:30 Patient Status: Condition improved Re-Evaluation/Progress Note: Discussed with patient lab results, diagnosis, and plan for discharge. Follow-up and return to the ER instructions given. Patient agrees with plan for care and all questions were addressed. Consultation #1: Consulted With: adult day care worker Call Returned at: 11:44 Patrol Lady: Will see patient, Agrees with eval, Agrees with plan Note: Social work is familiar with this patient. She has frequent ED visits here and in [place]. See Social Work note. Consultation #2: Consulted With: Primary care physician Call Returned at: 12:05 Patrol Lady: Agrees with eval, Agrees with plan Note: Dr. Malcolm, [facility] - Discussed patient's case. He saw her for the first time yesterday. He says that he did provide the letter that she brings with her but now thinks that that probably was not the best idea. Consultation #3: Consulted With: adult day care worker Call Returned at: 12:55 Patrol Lady: Agrees with eval, Agrees with plan Note: Agrees with plan for discharge. Counseled Regarding: Diagnosis, Lab results, Need for follow-up, When/why to return to ED Discharge & Departure Impression: Primary Impression: Abdominal pain Abdominal location: generalized Qualified Code: R10.84 - Generalized abdominal pain Additional Impression: Nausea and vomiting in adult Disposition: Home All VS Reviewed: Yes Condition: Improved Patient Instructions: Acute Abdominal Pain (ED), Acute Nausea and Vomiting (GEN ) Additional Instructions: Thank you for entrusting us with your care. Your exam today was reassuring for any serious illness. Please take promethazine as prescribed. We have spoken with your primary doctor. He will see you in his office in two days. Return to the ER with any new or worsening symptoms. Continue the antibiotic previously prescribed (ciprofloxacin) to complete 3 days. Referrals: OLGA SUNG (PCP) Karstenibtracy Attestation Portions of this note were transcribed by Yumi Cameron. I, Dr. Suarez, personally performed the history, physical exam, and medical decision-making; I reviewed and confirmed the accuracy of the information in the transcribed note. Signed by: Alverto Sandy, 08/25/2016, 14:25 copies to: OLGA SUNG Kirk H MD August 25, 2016 10:39 YUMI CAMERON August 25, 2016 10:48
[2016-08-25 11:17] LABS: APPEARANCE,URINE HAZY (CLEAR,HAZY); COLOR,URINE YELLOW (YELLOW); OCCULT BLOOD,URINE NEGATIVE (NEGATIVE); UROBILINOGEN,URINE NORMAL (NORMAL)
== END 2016-08-25 13:46 | disposition home or self-care (01) ==
LOC: SED 10:23
DX: R10.84 Generalized abdominal pain (principal); R11.2 Nausea with vomiting, unspecified; R50.9 Fever, unspecified; K21.9 Gastro-esophageal reflux disease without esophagitis; J45.909 Unspecified asthma, uncomplicated; Z88.0 Allergy status to penicillin; Z91.040 Latex allergy status
CPT/HCPCS: 81000; 81025; 90791; 99284; Q0169

== ENCOUNTER 2016-10-11 13:27 | Emergency (ER) | payer OTHER ==
[~2016-10-11] VITALS: Ht 167.6 cm; Wt 113.6 kg
[2016-10-11 14:14] VITALS: BP 137/85; PULSE 69; RESP 16; O2SAT 98
--- NOTE | 2016-10-11 16:46 | ED.REPORT ---
HPI-Syncope Date of Service Oct 11, 2016 ED Provider: Felix Lay MD The pt is a 26 y/o female w/ a hx of asthma presenting to the ED due to an episode of syncope. Today's episode began w/ a migraine while she was sitting and felt like she needed to vomit but was unable to due to her "throat swelling up". She did not her head during today's first episode. She then was sitting on a hot bus which caused her to lose consciousness again and hit her head. Yesterday the pt experienced another episode of syncope that caused her to hit her head on the bathtub. She suspects the episode was caused by the heat and dehydration she was experiencing. She was then seen at [facility] yesterday where a CT was taken. She also reports having difficulty remembering things and being unable to drink water. Nursing Notes Stated Complaint: GLF HEAD TRAUMA 10/10/16 Chief Complaint: Neuro Symptoms/ Deficits Nursing Notes Reviewed: Yes (Re2you, meds not reocnciled) Allergies: Coded Allergies: Penicillins (Verified Allergy, Severe, Anaphylaxis, 08/12/16) latex (Verified Allergy, Intermediate, rash, 08/12/16) Scheduled Citalopram (Citalopram) 20 Mg Tablet 20 MG PO DAILY Ferrous Sulfate (Ferrous Sulfate) 325 Mg Tablet 325 MG PO DAILY Folic Acid (Folic Acid) 1 Mg Tablet 1 MG PO DAILY Olanzapine (Olanzapine) 5 Mg Tablet 5 MG PO DAILY Ondansetron ODT (Ondansetron ODT) 8 Mg Tab.rapdis 8 MG PO Q8H Ondansetron ODT (Ondansetron ODT) 8 Mg Tab.rapdis 8 MG PO Q8H Phenazopyridine (Phenazopyridine #3PP) 200 Mg Tab 200 MG PO Q8H Scheduled PRN Ondansetron ODT (Zofran ODT) 4 Mg Tablet 4 MG PO Q4H PRN PRN For Nausea Promethazine (Promethazine) 25 Mg Tablet 25 MG PO Q6H PRN PRN For Nausea General Time Seen by Provider: 17:00 Chief Complaint Lost consciousness Hx Obtained From: Patient Arrived By: Walk-in Onset Occurred: Just prior to arrival Recent Healthcare: No recent hospitalization, Recent doctor visit Similar Sx Previous: Yes Past Medical History Past Medical History Frequent ED visits to different hospitals for nausea, vomiting, From patient: "Memory loss" Claims to be on thyroid medications GERD Meningitis Asthma Past Surgical History 2014 Family History Noncontributory Smoking History Never Smoker Social History Alcohol Use: Denies alcohol use Drug Use: Denies drug use Other Social History: Frequent ED visitor, Ambulatory Status Independent Review of Systems Throat "swelling" Neurologic: Reports: Headache Complete sys rev & neg: except as marked. Physical Exam Initial Vital Signs Vital Signs (First) Date Time Temp Pulse Resp B/P Pulse Ox O2 Delivery O2 Flow Rate FiO2 10/11/16 14:14 36.8 69 16 137/85 98 Room Air Initial VS: Reviewed, Vital signs normal General/Constitutional: Awake, Alert Respiratory / Chest: Atraumatic, Breath sounds NL, Breath sounds = bilat, No respiratory distress Cardiovascular: Heart rate NL, Regular rhythm, Heart sounds NL Lower Extremity / Pelvis / MS: Atraumatic, Inspection NL, Full range of motion Neurologic: Oriented X3, Speech NL Head / Eyes: Normocephalic, No photophobia Suboccipital hematoma ENT: Atraumatic, Mucous membranes moist Neck: Atraumatic, Supple, Full range of motion Abdomen: Atraumatic, Soft, Non-tender Skin: Atraumatic, Color NL, No rash, Warm, Dry Psychiatric: Mood NL, Not suicidal, Not homicidal The pt is a wandering historian w/ a bizarre affect and complaints that are disproportionate to her symptoms. She does not seem intoxicated. Interpretation & Diagnostics Lab Results Interpretation Result Diagram: 10/11/16 1735 Test 10/11/16 17:14 10/11/16 17:35 Hold Urine Received (Received) White Blood Count 7.2th/mm3 (3.8-10.1) Red Blood Count 4.29mil/mm3 (3.90-5.20) Hemoglobin 11.6g/dL (12.0-15.6) Hematocrit 35.2% (35.0-46.0) Mean Corpuscular Volume 82.1fL (81-100) Mean Corpuscular Hemoglobin 27.0pg (27.0-35.0) Mean Corpuscular Hemoglobin Concent 33.0% (32.0-37.0) Red Cell Distribution Width 14.8% (12.3-15.4) Platelet Count 229bil/L (150-400) Neutrophils (%) (Auto) 56.5% (40-74) Lymphocytes (%) (Auto) 32.8% (14-46) Monocytes (%) (Auto) 8.6% (4-12) Eosinophils (%) (Auto) 1.7% (0-5) Basophils (%) (Auto) 0.3% (0-3) Lab Results Interpretation: CBC normal negative urine negative ECG Interpretation ECG Interpretation: Rate 67 Normal sinus rhythm Time: 16:56 Interpreted by: ED physician CT Head Interpretation Impression: No acute findings Study: Head CT no contrast Interpretation / Wet Read by: Wet read ED physician Re-Eval/Medical Decision Med Decision/Clinical Course This is a 26-year-old male presents with extremely odd story. She talks about some sort of event where she may have had syncope or just fallen getting out of the bathtub yesterday-she was seen at [facility] in [place] and evaluated and discharged with some ondansetron for nausea she reports she does not help. Today she presents concerned that she has had a "heat stroke", that she is dehydrated, to the point that she feels that she cannot really swallow well or take fluids at all. Patient reports his Zofran "never helps". She also talks about how she has a "spell" while at [facility] today initially said syncope but when I pursue the history she does not give a history of actually passing out. She is complaining of a headache, and that had some sort of event on a bus where she decided to go seek help from the police officers to come to the ED-but she is extremely vague and challenging to get a focused history of exactly what is going on. Furthermore her descriptions of her dehydration, and her difficulty swallowing or inconsistent with her current clinical presentation where she appears generally well, not dehydrated, swallowing her secretions without visible discomfort return for stability in the department. He is a very small trace occipital hematoma and I cannot sort out from her whether or not this occurred yesterday or today. She has no tachycardia or hemodynamic instability. She is very concerned about dehydration, and although this is not clinically apparent an IV was placed and labs to be drawn and she was hydrated. The challenges in understanding her presentation a workup was pursued: Repeat head CT negative, EKG is normal, blood work is normal, is negative. I am not finding a dangerous etiology of her presentation. I am not finding formal heatstroke. She was hydrated here but does not have any overt vomiting, and has no obvious airway or GI pathology necessitating additional testing. Given she reports ondansetron has not worked well for her, providing some when necessary promethazine. The plan is discharge with follow-up with her PCP in [place]. Source of Hx: Old records Re-Evaluation/Progress : Time of Eval: 17:38 Re-Evaluation/Progress Note: Pt rechecked. Informed pt of plan for treatment. Pt understands and agrees with plan for treatment. F/U instructions and RTER warnings given. All questions addressed. Counseled Regarding: Diagnosis, Lab results, Need for follow-up, When/why to return to ED Discharge & Departure Impression: Primary Impression: Nausea Additional Impressions: Blunt head trauma Encounter type: initial encounter Qualified Code: S09.8XXA - Other specified injuries of head, initial encounter Dehydration Disposition: Home Discharge Condition All VS Reviewed: Yes Condition: Stable Additional Instructions: 1. A dangerous cause of her symptoms was not identified. 2. Your heart test did not reveal a dangerous cause passing out. 3. You had a CT scan of the brain today - this was normal. 4. Your blood counts were entirely normal. 5. It is possible that some her symptoms are from dehydration and for mild heat exposure. Make sure you drink plenty of fluids to stay well hydrated. 6. You reported that the ondansetron does not work well to help the nausea, you can take promethazine 25 mg tabs up to every 4 hours if needed instead. 7. Please call for an appointment with Josiah Jimenez in [place] for follow-up and a recheck. [facility] Scribe Attestation Portions of this note were transcribed by Kushal Gregg. I, Dr. Lay personally performed the history, physical exam and medical decision-making; I reviewed and confirmed the accuracy of the information in the transcribed note. Signed by : Alverto Rosales, 10/11/16 and 6202. copies to: [facility] Matthew F MD Oct 11, 2016 16:46 Kushal Gregg Oct 11, 2016 17:39
[2016-10-11] MEDS ORDERED: Promethazine Inj 25 MG in Dextrose 5%-Pha MIX 50 ML IV ONE (17:05)
[2016-10-11] MEDS ORDERED: 0.9% Sodium Chloride 1,000 ML IV ONE (17:05)
[2016-10-11 17:43] LABS: BASOPHILS % (AUTO) 0.3 % (0-3); EOSINOPHILS % (AUTO) 1.7 % (0-5); MONOCYTES % (AUTO) 8.6 % (4-12); Mean Corpuscular Volume 82.1 fL (81-100); NEUTROPHILS % (AUTO) 56.5 % (40-74); Platelet Count 229 bil/L (150-400)
[2016-10-11] MEDS ORDERED: PROM25TA14 PO (17:51)
--- NOTE | 2016-10-11 18:42 | DRSVH ---
PROCEDURE: CT BRAIN WITHOUT CONTRAST ([id number]) INDICATIONS: syncope->trauma w/head lac TECHNIQUE: Noncontrast 4.5 mm thick angled axial sections acquired from the foramen magnum to the vertex, with c oronal reformats. COMPARISON: None. FINDINGS: Image quality: Excellent. CSF spaces: Basal cisterns are patent. No extra-axial fluid collections. Ventricles are normal in size and shape. Brain: No midline shift. No intracranial masses or hemorrhage. Harvey-white matter interface is norm al. Skull and face: Calvarium and visualized facial bones are intact, without suspicious lesions. Sinuses: Visualized sinuses and mastoids are clear. IMPRESSION: 1. No acute intracranial process. Dictated by: Lisa Troy M.D. on 10/11/2016 at 18:39 Approved by: Lisa Troy M.D. on 10/11/2016 at 18:41
[2016-10-11 19:24] VITALS: BP 115/83; PULSE 75; RESP 16; O2SAT 97
== END 2016-10-11 19:25 | disposition home or self-care (01) ==
LOC: SED 13:27
DX: S09.8XXA Other specified injuries of head, initial encounter (principal); E86.0 Dehydration; R11.0 Nausea; W22.8XXA Striking against or struck by other objects, initial encounter; Y93.9 Activity, unspecified; Y92.9 Unspecified place or not applicable; Y99.8 Other external cause status; K21.9 Gastro-esophageal reflux disease without esophagitis; Z88.0 Allergy status to penicillin; Z91.040 Latex allergy status
CPT/HCPCS: 36415; 70450; 80053; 81025; 84703; 85025; 90791; 93005; 96361; 96374; 99285; J2550; J7030

== ENCOUNTER 2016-10-20 09:18 | Emergency (ER) | payer OTHER ==
[~2016-10-20] VITALS: Ht 167.6 cm; Wt 104.5 kg
[~2016-10-20 09:18] MED LIST changes: +PROM25TA14 PO
[2016-10-20 09:24] VITALS: BP 113/64; PULSE 90; RESP 18; O2SAT 99
--- NOTE | 2016-10-20 09:34 | ED.REPORT ---
HPI-Abd Pain F Under 40 Date of Service Oct 20, 2016 ED Provider: Sreekanth Murphy MD The patient is a 26 year old female with history of multiple ED visits, GERD and asthma, who was brought to the emergency department by EMS for multiple complaints. The patient complains of epigastric abdominal pain, nausea, diarrhea , and vomiting. She states she has thrown up 10 times this morning and noticed blood in her emesis. She has experienced similar symptoms multiple times in the past. Her pain is consistent with previous episodes. She has also experienced a subjective fever, dysuria, lower back pain, lower extremity swelling, and hives to her legs bilaterally. She denies hematuria, bloody stools or cough. Her LNMP was in March 2016. Nursing Notes Stated Complaint: NAUSEA/VOMITING Chief Complaint: Female Abdominal Pain Nursing Notes Reviewed: Yes Allergies: Coded Allergies: Penicillins (Verified Allergy, Severe, Anaphylaxis, 10/20/16) latex (Verified Allergy, Intermediate, rash, 10/20/16) Scheduled Citalopram (Citalopram) 20 Mg Tablet 20 MG PO DAILY Ferrous Sulfate (Ferrous Sulfate) 325 Mg Tablet 325 MG PO DAILY Folic Acid (Folic Acid) 1 Mg Tablet 1 MG PO DAILY Olanzapine (Olanzapine) 5 Mg Tablet 5 MG PO DAILY Omeprazole (Omeprazole) 20 Mg Capsule.dr 20 MG PO DAILY Ondansetron ODT (Ondansetron ODT) 8 Mg Tab.rapdis 8 MG PO Q8H Ondansetron ODT (Ondansetron ODT) 8 Mg Tab.rapdis 8 MG PO Q8H Phenazopyridine (Phenazopyridine #3PP) 200 Mg Tab 200 MG PO Q8H Triamcinolone Acet (Triamcinolone Acetonide Cream) 1 Applic/0.25 Gm Cr 1 APPLIC EXT BID Scheduled PRN Calcium Carbonate (Tums) 500 Mg Tab.chew 500 MG PO QID PRN PRN For Dyspepsia or Heartburn Ondansetron ODT (Zofran ODT) 4 Mg Tablet 4 MG PO Q4H PRN PRN For Nausea Promethazine (Promethazine) 25 Mg Tablet 25 MG PO Q6H PRN PRN For Nausea General Time Seen by MD: 09:28 Chief Complaint Abdominal pain Hx Obtained From: Patient, EMS Arrived By: Ambulance Sudden in Onset?: No Onset Occurred: 2 days ago Symptom Duration: Since onset Progression since Onset: Constant Location: : Epigastric Quality: Painful Severity: Current: Moderate Severity: Maximum: Moderate Recent Healthcare: No recent hospitalization, Recent doctor visit Similar Sx Previous: Yes Past Medical History Past Medical History Frequent ED visits to different hospitals for nausea, vomiting, From patient: "Memory loss" Claims to be on thyroid medications GERD Meningitis Asthma Past Surgical History 2014 Family History Noncontributory Smoking History Never Smoker Social History Alcohol Use: Denies alcohol use Drug Use: Denies drug use Other Social History: Frequent ED visitor, Ambulatory Status Independent Review of Systems Constitutional: Reports: Fever (subjective) GI: Reports: Abdominal pain, Diarrhea, Hematemesis, Nausea, Vomiting, Denies: Bloody/tarry stool Female: Reports: Dysuria, Denies: Hematuria Musculoskeletal: Reports: Back pain, Extremity pain, Extremity swelling Complete sys rev & neg: except as marked. Skin: Reports Rash Physical Exam Initial Vital Signs Vital Signs (First) Date Time Temp Pulse Resp B/P Pulse Ox O2 Delivery O2 Flow Rate FiO2 10/20/16 09:24 36.7 90 18 113/64 99 Room Air Initial VS: Reviewed Head / Eyes: Atraumatic, Normocephalic, PERRL ENT: Mucous membranes moist, Conjunctiva normal, No scleral icterus Neck: Supple, Non-tender, Full range of motion Lymphatic: No lymphadenopathy Extremities: Vascular intact, Neuro intact, No swelling, No tenderness Neurologic: Alert, Oriented, Nonfocal Psychiatric: Mood/affect normal, Behavior normal, Normal thought content General/Constitutional: Awake, Alert, No acute distress, Well appearing Respiratory / Chest: Atraumatic, Breath sounds NL, Breath sounds = bilat, No respiratory distress, No rales, No rhonchi, No wheezing Cardiovascular: Heart rate NL, Regular rhythm, Heart sounds NL, Peripheral circulation NL Abdomen: Soft, No guarding, No rebound, BS normoactive, No distention Tenderness/Guarding/Rebound: Positive: Tender epigastric Back: Inspection NL, Non-tender, No CVA tenderness Skin: Warm, Dry Rash / Lesion Notes: Diffuse erythematous papules to the medial aspect of her knees bilaterally. Interpretation & Diagnostics Lab Results Interpretation Result Diagram: 10/20/16 1030 10/20/16 1030 Test 10/20/16 09:49 10/20/16 10:30 Urine Color Yellow (YELLOW) Urine Appearance Hazy (CLEAR,HAZY) Urine pH 6.0 (5.0-8.0) Urine Specific [place] 1.010 (1.003-1.035) Urine Protein Negativemg/dL (NEG,TRACE) Urine Glucose (UA) Negativemg/dL (NEGATIVE) Urine Ketones Negativemg/dL (NEGATIVE) Urine Occult Blood Negative (NEGATIVE) Urine Nitrite Negative (NEGATIVE) Urine Bilirubin Negative (NEGATIVE) Urine Urobilinogen Normalmg/dL (NORMAL) Urine Leukocyte Esterase Negative (NEGATIVE) Urine RBC 0-2/hpf (0-2) Urine WBC 0-5/hpf (0-5) Urine Epithelial Cells Few/hpf (NONE-MOD) Urine Crystals None seen (NONE SEEN) Urine Bacteria Moderate/hpf (NONE-FEW) Urine Hyaline Casts None/lpf (NONE) Urine Granular Casts None seen (NONE SEEN) Urine Waxy Casts None seen (NONE SEEN) Urine Red Blood Cell Casts None seen (NONE SEEN) Urine White Blood Cell Casts None seen (NONE SEEN) Urine Mucus None seen (None Seen) Urine Trichomonas None seen (NONE SEEN) Urine Yeast None (NONE SEEN) Urinalysis Comment None Urine Culture Reflexed Indicated White Blood Count 6.8th/mm3 (3.8-10.1) Red Blood Count 4.19mil/mm3 (3.90-5.20) Hemoglobin 11.4g/dL (12.0-15.6) Hematocrit 34.2% (35.0-46.0) Mean Corpuscular Volume 81.6fL (81-100) Mean Corpuscular Hemoglobin 27.2pg (27.0-35.0) Mean Corpuscular Hemoglobin Concent 33.3% (32.0-37.0) Red Cell Distribution Width 14.1% (12.3-15.4) Platelet Count 221bil/L (150-400) Neutrophils (%) (Auto) 63.6% (40-74) Lymphocytes (%) (Auto) 23.6% (14-46) Monocytes (%) (Auto) 11.0% (4-12) Eosinophils (%) (Auto) 1.2% (0-5) Basophils (%) (Auto) 0.3% (0-3) Sodium Level 136mEq/L (134-144) Potassium Level 3.8mEq/L (3.5-5.2) Chloride Level 100mEq/L (97-108) Carbon Dioxide Level 22mmol/L (18-29) Blood Urea Nitrogen 11mg/dL (6-20) Creatinine 0.77mg/dL (0.57-1.00) Estimat Glomerular Filtration Rate 131mL/min (>59) Glucose Level 103mg/dL (60-99) Calcium Level 9.3mg/dL (8.5-10.1) Magnesium Level 1.8mg/dL (1.6-2.6) Total Bilirubin 0.3mg/dL (0.0-1.2) Aspartate Amino Transf (AST/SGOT) 16U/L (0-50) Alanine Aminotransferase (ALT/SGPT) 20U/L (0-32) Alkaline Phosphatase 68U/L (25-150) Total Protein 6.7g/dL (6.4-8.4) Albumin 4.0g/dL (3.4-5.0) Lipase 111U/L (13-60) Hold Rod Top Tube Received (Received) Re-Eval/Medical Decision Med Decision/Clinical Course Med Decision/Clinical Course: 26-year-old female history of chronic abdominal pain and hypochondria per chart review presenting with abdominal pain and vomiting today. On exam she has mild epigastric tenderness no rebound or guarding. She did not have any vomiting here. She appeared quite well. Her labs are unremarkable. Her urine no infection and not . Patient felt better after GI cocktail. Her lipase was very mildly elevated. The gastritis given improvement with GI cocktail. Cannot rule out very mild pancreatitis. Patient requested to go home. She was advised about dietary recommendations. She was prescribed PPI, Tums. She is advised to follow up with her primary doctor. Return if any new or worsening abdominal pain, fevers, nausea vomiting, back pain, dysuria, GI bleeding or any other new or worsening symptoms. Source of Hx: Old records, EMS Re-Evaluation/Progress : Time of Eval: 11:25 Re-Evaluation/Progress Note: Rechecked the patient. Discussed plan for discharge. All questions were addressed. Counseled Regarding: Diagnosis, Lab results, Need for follow-up, When/why to return to ED Discharge & Departure Primary Impression: Acid reflux Esophagitis presence: without esophagitis Qualified Code: K21.9 - Gastro- esophageal reflux disease without esophagitis Additional Impressions: Gastritis Gastritis type: unspecified gastritis Chronicity: unspecified Gastritis bleeding: without bleeding Qualified Code: K29.70 - Gastritis, unspecified, without bleeding Pancreatitis Chronicity: acute Pancreatitis type: unspecified pancreatitis type Acute pancreatitis complication: no infection or necrosis Qualified Code: K85.90 - Acute pancreatitis without necrosis or infection, unspecified Atopic dermatitis Atopic dermatitis type: unspecified Qualified Code: L20.9 - Atopic dermatitis, unspecified Disposition: Home Discharge Condition All VS Reviewed: Yes Condition: Stable Patient Instructions: Gastritis (ED), Gastroesophageal Reflux Disease (ED), Pancreatitis (ED) Additional Instructions: Thank you for entrusting us with your care today. Your symptoms are consistent with gastritis and acid reflux. Take omeprazole as prescribed to help with the acid reflux. If this does not provide immediate relief you can also take TUMs. Your lab results also show evidence of mild pancreatitis. Make sure to drink plenty of fluids and eat foods that are easy on your stomach (Bananas, rice, applesauce, toast, broth, soup, noodles, etc.). Do not eat heavy greasy foods, acidic foods, or spicy foods. Followup with your regular doctor in a few days for re-evaluation. Use the cream as needed for your rash. Return to the emergency department for any new or concerning symptoms. Referrals: OLGA SUNG (PCP) [place] Attestation Portions of this note were transcribed by Nguyen Valdovinos. I, Dr. Murphy personally performed the history, physical exam and medical decision-making; I reviewed and confirmed the accuracy of the information in the transcribed note. Signed by: Alverto Guzman, 10/20/2016 at 1200. copies to: [facility] OLGA ROUSSEAU Ben M MD Oct 20, 2016 09:34 Nguyen Valdovinos Oct 20, 2016 09:43
[2016-10-20] MEDS ORDERED: LidocaineVisc 2%:Antacid 1:1 10 mL Syringe PO ONE (09:45)
[2016-10-20 10:01] LABS: APPEARANCE,URINE HAZY (CLEAR,HAZY); COLOR,URINE YELLOW (YELLOW)
[2016-10-20 10:02] LABS: OCCULT BLOOD,URINE NEGATIVE (NEGATIVE); UROBILINOGEN,URINE NORMAL (NORMAL)
[2016-10-20 10:53] LABS: BASOPHILS % (AUTO) 0.3 % (0-3); EOSINOPHILS % (AUTO) 1.2 % (0-5); Mean Corpuscular Hemoglobin 27.2 pg (27.0-35.0); Mean Corpuscular Volume 81.6 fL (81-100); NEUTROPHILS % (AUTO) 63.6 % (40-74); Platelet Count 221 bil/L (150-400)
[2016-10-20 11:17] LABS: Magnesium 1.8 mg/dL (1.6-2.6)
[2016-10-20] MEDS ORDERED: KEN25CR EXT (11:37)
[2016-10-20] MEDS ORDERED: OMEP20CA11 PO (11:37)
[2016-10-20] MEDS ORDERED: CALC500T9 PO (11:37)
[2016-10-20 11:53] VITALS: BP 110/68; PULSE 83; RESP 18; O2SAT 99
== END 2016-10-20 11:53 | disposition home or self-care (01) ==
LOC: SED 09:18 → EDBD 09:18 → SED 11:53
DX: K21.9 Gastro-esophageal reflux disease without esophagitis (principal); K29.70 Gastritis, unspecified, without bleeding; K85.90 Acute pancreatitis without necrosis or infection, unspecified; L20.9 Atopic dermatitis, unspecified; Z88.0 Allergy status to penicillin; Z91.040 Latex allergy status
CPT/HCPCS: 36415; 80053; 81000; 81025; 83690; 83735; 85025; 87086; 87088; 96372; 99284; J1885

== ENCOUNTER 2016-10-25 11:30 | Emergency (ER) | payer OTHER ==
[~2016-10-25] VITALS: Ht 167.6 cm; Wt 109.1 kg
[~2016-10-25 11:30] MED LIST changes: +CALC500T9 PO; +KEN25CR EXT; +OMEP20CA11 PO
[2016-10-25 11:40] VITALS: BP 145/81; PULSE 88; RESP 12; O2SAT 94
--- NOTE | 2016-10-25 12:24 | ED.REPORT ---
HPI-Abd Pain F Under 40 Date of Service Oct 25, 2016 ED Provider: Boston Beckett PA-C Dacia is a frequent ED visitor, 26-year-old female presents with a chief complaint of epigastric pain. Complaint of 20 episodes of vomiting since midnight, now just dry heaves. Denies blood. Admits constipation with painful bowel movements without blood, tarry stool. Initially denies but later admits eating cereal for breakfast this morning. Seen for similar in this department several days ago, discharged on a PPI, ondansetron. Mildly elevated lipase is noted at that time. Secondary complaint of leg pain. Patient reports that she thinks she was bitten by a spider. She reports seeing a spider "maybe a black ", but is unsure where it bit her. Indicates rash and bruising on her medial distal thigh. She can recall no trauma. History of hypochondria per chart review as well as intellectual disability. Patient lives in [place], reports she felt too ill to go to school today. States she is a [place] visiting her grandmother. At previous visits this patient has told me that no longer treat her at [facility]. Nursing Notes Stated Complaint: ABDOMINAL PAIN/RIGHT LEG PAIN Chief Complaint: Female Abdominal Pain Nursing Notes Reviewed: Yes Allergies: Coded Allergies: Penicillins (Verified Allergy, Severe, Anaphylaxis, 10/20/16) latex (Verified Allergy, Intermediate, rash, 10/20/16) Scheduled Citalopram (Citalopram) 20 Mg Tablet 20 MG PO DAILY Ferrous Sulfate (Ferrous Sulfate) 325 Mg Tablet 325 MG PO DAILY Folic Acid (Folic Acid) 1 Mg Tablet 1 MG PO DAILY Olanzapine (Olanzapine) 5 Mg Tablet 5 MG PO DAILY Omeprazole (Omeprazole) 20 Mg Capsule.dr 20 MG PO DAILY Ondansetron ODT (Ondansetron ODT) 8 Mg Tab.rapdis 8 MG PO Q8H Ondansetron ODT (Ondansetron ODT) 8 Mg Tab.rapdis 8 MG PO Q8H Phenazopyridine (Phenazopyridine #3PP) 200 Mg Tab 200 MG PO Q8H Triamcinolone Acet (Triamcinolone Acetonide Cream) 1 Applic/0.25 Gm Cr 1 APPLIC EXT BID Scheduled PRN Calcium Carbonate (Tums) 500 Mg Tab.chew 500 MG PO QID PRN PRN For Dyspepsia or Heartburn Ondansetron ODT (Zofran ODT) 4 Mg Tablet 4 MG PO Q4H PRN PRN For Nausea Prochlorperazine Maleate (Prochlorperazine) 5 Mg Tablet 5 MG PO Q8 PRN PRN For Nausea/Vomiting Promethazine (Promethazine) 25 Mg Tablet 25 MG PO Q6H PRN PRN For Nausea General Time Seen by MD: 12:09 Chief Complaint Abdominal pain Past Medical History Past Medical History Frequent ED visits to different hospitals for nausea, vomiting, From patient: "Memory loss" Claims to be on thyroid medications GERD Meningitis Asthma Past Surgical History 2014 Family History Noncontributory Smoking History Never Smoker Social History Alcohol Use: Denies alcohol use Drug Use: Denies drug use Other Social History: Frequent ED visitor, Ambulatory Status Independent Review of Systems Review of Systems Note: Negative unless stated otherwise in history of present illness Physical Exam General: Well appearing, well developed, well nourished, no acute distress. Right le cm x 3 cm bruise on the medial thigh just proximal to the knee. Also a maculopapular rash. Right knee: Normal inspection, nontender, full range of motion Right foot/ankle: DP and PT pulses 2+ and normal to inspection, nontender, full range of motion. Head: Atraumatic, normocephalic. Eyes: No scleral icterus or injection. No discharge. Vision grossly intact. ENT: Voice clear, hearing grossly intact. Respiratory: Regular rate and rhythm. Breath sounds present, clear to auscultation and equal bilaterally. No respiratory distress. No increased work of breathing, speaks in complete sentences. Cardiovascular: Regular rate and rhythm, without murmur, gallop or rub. No pedal edema. Gastrointestinal: Extremely mild epigastric tenderness without guarding or rebound. Bowel sounds normoactive. Skin: Warm and dry. Back: Normal to inspection, negative CVA tenderness. Neurological: Grossly nonfocal. Psychological: Alert and oriented. Speech appropriate, linear and logical. Behavior appropriate. Initial Vital Signs Vital Signs (First) Date Time Temp Pulse Resp B/P Pulse Ox O2 Delivery O2 Flow Rate FiO2 10/25/16 11:40 37.1 88 12 145/81 94 Room Air Normal Interpretation & Diagnostics Lab Results Interpretation Result Diagram: 10/25/16 1240 10/25/16 1240 Test 10/25/16 12:35 10/25/16 12:40 Hold Urine Received (Received) White Blood Count 8.4th/mm3 (3.8-10.1) Red Blood Count 4.41mil/mm3 (3.90-5.20) Hemoglobin 12.0g/dL (12.0-15.6) Hematocrit 36.0% (35.0-46.0) Mean Corpuscular Volume 81.6fL (81-100) Mean Corpuscular Hemoglobin 27.2pg (27.0-35.0) Mean Corpuscular Hemoglobin Concent 33.3% (32.0-37.0) Red Cell Distribution Width 14.2% (12.3-15.4) Platelet Count 205bil/L (150-400) Neutrophils (%) (Auto) 54.5% (40-74) Lymphocytes (%) (Auto) 31.0% (14-46) Monocytes (%) (Auto) 12.1% (4-12) Eosinophils (%) (Auto) 1.7% (0-5) Basophils (%) (Auto) 0.5% (0-3) Sodium Level 137mEq/L (134-144) Potassium Level 3.9mEq/L (3.5-5.2) Chloride Level 100mEq/L (97-108) Carbon Dioxide Level 22mmol/L (18-29) Blood Urea Nitrogen 12mg/dL (6-20) Creatinine 0.73mg/dL (0.57-1.00) Estimat Glomerular Filtration Rate 139mL/min (>59) Glucose Level 111mg/dL (60-99) Calcium Level 9.5mg/dL (8.5-10.1) Total Bilirubin 0.2mg/dL (0.0-1.2) Aspartate Amino Transf (AST/SGOT) 14U/L (0-50) Alanine Aminotransferase (ALT/SGPT) 19U/L (0-32) Alkaline Phosphatase 71U/L (25-150) Total Protein 6.9g/dL (6.4-8.4) Albumin 4.2g/dL (3.4-5.0) Lipase 48U/L (13-60) Hold Rod Top Tube Received (Received) Re-Eval/Medical Decision Med Decision/Clinical Course 26-year-old female, frequent ED visitor presents with chief complaint of abdominal pain, vomiting and knee pain. Seen in this department recently for similar, prescribed PPI, ondansetron. Patient reports ongoing nausea, 20 episodes of vomiting today, now just dry heaves. He also reports a suspect spider bite on her right knee. She reports seeing a spider, states that it hurts but is unsure where it bit her. Examination reveals a well-appearing 26-year-old female. Extremely mild epigastric tenderness on palpation. Bruising and a maculopapular rash are noted on the medial distal thigh. This is not tender. Circulation sensation are intact distally. Otherwise benign evaluation with normal vital signs. While in the emergency department the patient vomits once, which appears to have food particles in it, which makes me suspect the history of 20 episodes of vomiting this morning. On further questioning the patient initially denies but eventually admits to having some cereal this morning. CBC and CMP are unremarkable, with no indication of the potential pancreatitis noted that earlier visit. The pain in her leg appears to be secondary to a bruise and rash on her medial leg. I have little concern for dangerous spider bite, cellulitis, abscess or necrotizing fasciitis as there is no tenderness. She has full range of motion of the knee and I am not concerned about a septic joint. In general reassured there is unlikely to be an immediately dangerous condition here. In the context of a reassuring physical, normal vitals, normal labs I have low concern for GI bleed, appendicitis, cholecystitis, pancreatitis. While this may be gastritis, there is also possibility of hypochondria, malingering. I discussed discharge with the patient, who requests additional nausea medications. Of note she also asks if the cafeteria still open, remarking that she would like to get some clam chowder. I discussed this case with Dr. Loja, who expresses agreement with my assessment. Provided prescription for antinausea medication. Advised regarding primary care follow-up, provided emergency return precautions. Patient verbalized understanding of, and consent to, the plan. Discharge & Departure Primary Impression: Nausea and vomiting in adult Disposition: Home Discharge Condition All VS Reviewed: Yes Condition: Stable Patient Instructions: Acute Nausea and Vomiting (ED) Additional Instructions: Evaluation for abdominal pain, vomiting and knee pain in the emergency department includes interview, physical examination and blood tests all of which are reassuring that her symptoms are not caused by an immediately dangerous condition. There is no indication that you have pancreatitis. I recommend Eucerin lotion for the rash on your leg. I will write a prescription for Reglan to help with your nausea. Please follow up with your primary care provider as soon as possible. Return to emergency department for new or worsening symptoms including severe abdominal pain, pain in your chest or difficulty breathing. Referrals: OLGA SUNG (PCP) EDSupervising Provider for APC: Suzie Frost MD copies to: OLGA SUNG Seth PA-C Oct 25, 2016 12:24
[2016-10-25 12:49] LABS: BASOPHILS % (AUTO) 0.5 % (0-3); EOSINOPHILS % (AUTO) 1.7 % (0-5); MONOCYTES % (AUTO) 12.1 % (4-12); Mean Corpuscular Hemoglobin 27.2 pg (27.0-35.0); Mean Corpuscular Volume 81.6 fL (81-100); NEUTROPHILS % (AUTO) 54.5 % (40-74); Platelet Count 205 bil/L (150-400)
[2016-10-25] MEDS ORDERED: PROC5TAB PO (13:56)
[2016-10-25 14:17] VITALS: BP 120/77; PULSE 81; RESP 16; O2SAT 97
== END 2016-10-25 14:19 | disposition home or self-care (01) ==
LOC: SED 11:30
DX: R10.13 Epigastric pain (principal); R11.2 Nausea with vomiting, unspecified; K21.9 Gastro-esophageal reflux disease without esophagitis; S80.11XA Contusion of right lower leg, initial encounter; R21 Rash and other nonspecific skin eruption; X58.XXXA Exposure to other specified factors, initial encounter; Y93.89 Activity, other specified; Y99.8 Other external cause status; Y92.9 Unspecified place or not applicable; J45.909 Unspecified asthma, uncomplicated; K59.00 Constipation, unspecified; Z86.61 Personal history of infections of the central nervous system; Z59.0 Homelessness; Z88.0 Allergy status to penicillin

== ENCOUNTER 2016-11-04 08:47 | Emergency (ER) | payer OTHER ==
[~2016-11-04] VITALS: Ht 167.6 cm; Wt 90.9 kg
[~2016-11-04 08:47] MED LIST changes: +PROC5TAB PO
[2016-11-04 08:52] VITALS: BP 120/74; PULSE 82; RESP 16; O2SAT 96
--- NOTE | 2016-11-04 08:56 | ED.REPORT ---
HPI-Abd Pain F Under 40 Date of Service Nov 04, 2016 ED Provider: Sreekanth Murphy MD Patient is a 26 year old female with a hx of GERD, anxiety, meningitis, personality disorder, and hypochondria who presents to the ED via EMS complaining of abdominal pain onset 3 days ago. Associated symptoms include constipation, not passing gas, nausea, vomiting, back pain, and dysuria. She denies vaginal bleeding, hematochezia, hematemesis, fever, diarrhea, or any other symptoms. She has not had a period in 7 months but had a negative test when she was seen for the same symptoms 10 days ago. Nursing Notes Stated Complaint: ABDOMINAL PAIN Chief Complaint: Female Abdominal Pain Nursing Notes Reviewed: Yes Allergies: Coded Allergies: Penicillins (Verified Allergy, Severe, Anaphylaxis, 11/04/16) latex (Verified Allergy, Intermediate, rash, 11/04/16) diphenhydramine (Verified Allergy, Unknown, Rash, 11/04/16) Scheduled Citalopram (Citalopram) 20 Mg Tablet 20 MG PO DAILY Ferrous Sulfate (Ferrous Sulfate) 325 Mg Tablet 325 MG PO DAILY Folic Acid (Folic Acid) 1 Mg Tablet 1 MG PO DAILY Olanzapine (Olanzapine) 5 Mg Tablet 5 MG PO DAILY Omeprazole (Omeprazole) 20 Mg Capsule.dr 20 MG PO DAILY Ondansetron (Ondansetron) 8 Mg Tablet 8 MG PO TID Ondansetron ODT (Ondansetron ODT) 8 Mg Tab.rapdis 8 MG PO Q8H Ondansetron ODT (Ondansetron ODT) 8 Mg Tab.rapdis 8 MG PO Q8H Phenazopyridine (Phenazopyridine #3PP) 200 Mg Tab 200 MG PO Q8H Polyethylene Glycol 3350 (Miralax) 17 Gm Powd.pack 17 GM PO DAILY Ranitidine Liquid (Ranitidine Liquid) 15 Mg/1 Ml Syrup 10 ML PO BID Triamcinolone Acet (Triamcinolone Acetonide Cream) 1 Applic/0.25 Gm Cr 1 APPLIC EXT BID Scheduled PRN Calcium Carbonate (Tums) 500 Mg Tab.chew 500 MG PO QID PRN PRN For Dyspepsia or Heartburn Ondansetron ODT (Zofran ODT) 4 Mg Tablet 4 MG PO Q4H PRN PRN For Nausea Prochlorperazine Maleate (Prochlorperazine) 5 Mg Tablet 5 MG PO Q8 PRN PRN For Nausea/Vomiting Promethazine (Promethazine) 25 Mg Tablet 25 MG PO Q6H PRN PRN For Nausea General Time Seen by MD: 08:54 Chief Complaint Abdominal pain Hx Obtained From: Patient Arrived By: Ambulance Sudden in Onset?: Yes Onset Occurred: 3 days ago Symptom Duration: Since onset Recent Healthcare: Recent doctor visit Similar Sx Previous: Yes Past Medical History Past Medical History Frequent ED visits to different hospitals for nausea, vomiting, From patient: "Memory loss" Claims to be on thyroid medications GERD Meningitis Asthma Hypochondria Past Surgical History 2013 Family History Noncontributory Smoking History Never Smoker Social History Alcohol Use: Denies alcohol use Drug Use: Denies drug use Other Social History: Frequent ED visitor, Ambulatory Status Independent Review of Systems Review of Systems Note: +not passing gas Constitutional: Denies: Fever GI: Reports: Abdominal pain, Constipation, Nausea, Vomiting, Denies: Diarrhea, Hematemesis, Hematochezia Female: Reports: Dysuria, Denies: Vaginal bleeding - abnl Musculoskeletal: Reports: Back pain Complete sys rev & neg: except as marked. Physical Exam Initial Vital Signs Vital Signs (First) Date Time Temp Pulse Resp B/P Pulse Ox O2 Delivery O2 Flow Rate FiO2 11/04/16 08:52 37.0 82 16 120/74 96 Room Air Initial VS: Reviewed, Vital signs normal Head / Eyes: Atraumatic, Normocephalic Neck: Full range of motion Skin: Warm, Dry Neurologic: Alert, Oriented, Nonfocal Psychiatric: Mood/affect normal, Behavior normal, Normal thought content General/Constitutional: Awake, Alert Actively vomiting Respiratory / Chest: Breath sounds NL, Breath sounds = bilat, No respiratory distress Cardiovascular: Heart rate NL, Regular rhythm, Heart sounds NL Abdomen: Atraumatic, Soft, No guarding, No rebound Diffuse tenderness Back: No CVA tenderness Interpretation & Diagnostics Lab Results Interpretation Result Diagram: 11/04/16 0935 11/04/16 0935 Test 11/04/16 09:35 White Blood Count 6.9th/mm3 (3.8-10.1) Red Blood Count 4.62mil/mm3 (3.90-5.20) Hemoglobin 12.3g/dL (12.0-15.6) Hematocrit 37.9% (35.0-46.0) Mean Corpuscular Volume 82.0fL (81-100) Mean Corpuscular Hemoglobin 26.6pg (27.0-35.0) Mean Corpuscular Hemoglobin Concent 32.5% (32.0-37.0) Red Cell Distribution Width 14.3% (12.3-15.4) Platelet Count 240bil/L (150-400) Neutrophils (%) (Auto) 55.3% (40-74) Lymphocytes (%) (Auto) 30.9% (14-46) Monocytes (%) (Auto) 10.5% (4-12) Eosinophils (%) (Auto) 2.8% (0-5) Basophils (%) (Auto) 0.4% (0-3) Urine Color Yellow (YELLOW) Urine Appearance Hazy (CLEAR,HAZY) Urine pH 6.0 (5.0-8.0) Urine Specific [place] 1.025 (1.003-1.035) Urine Protein Negativemg/dL (NEG,TRACE) Urine Glucose (UA) Negativemg/dL (NEGATIVE) Urine Ketones Negativemg/dL (NEGATIVE) Urine Occult Blood Negative (NEGATIVE) Urine Nitrite Negative (NEGATIVE) Urine Bilirubin Negative (NEGATIVE) Urine Urobilinogen Normalmg/dL (NORMAL) Urine Leukocyte Esterase Negative (NEGATIVE) Urine RBC 0-2/hpf (0-2) Urine WBC 0-5/hpf (0-5) Urine Epithelial Cells Occasional/hpf (NONE-MOD) Urine Crystals None seen (NONE SEEN) Urine Bacteria Moderate/hpf (NONE-FEW) Urine Hyaline Casts None/lpf (NONE) Urine Granular Casts None seen (NONE SEEN) Urine Waxy Casts None seen (NONE SEEN) Urine Red Blood Cell Casts None seen (NONE SEEN) Urine White Blood Cell Casts None seen (NONE SEEN) Urine Mucus Present (None Seen) Urine Trichomonas None seen (NONE SEEN) Urine Yeast None (NONE SEEN) Urinalysis Comment None Urine Culture Reflexed Indicated Sodium Level 140mEq/L (134-144) Potassium Level 3.8mEq/L (3.5-5.2) Chloride Level 101mEq/L (97-108) Carbon Dioxide Level 22mmol/L (18-29) Blood Urea Nitrogen 15mg/dL (6-20) Creatinine 0.69mg/dL (0.57-1.00) Estimat Glomerular Filtration Rate 148mL/min (>59) Glucose Level 91mg/dL (60-99) Calcium Level 9.5mg/dL (8.5-10.1) Magnesium Level 1.9mg/dL (1.6-2.6) Total Bilirubin 0.2mg/dL (0.0-1.2) Aspartate Amino Transf (AST/SGOT) 13U/L (0-50) Alanine Aminotransferase (ALT/SGPT) 19U/L (0-32) Alkaline Phosphatase 71U/L (25-150) Total Protein 7.3g/dL (6.4-8.4) Albumin 4.4g/dL (3.4-5.0) Lipase 52U/L (13-60) X-Ray Chest Interpretation Chest Xray Interpretation: IMPRESSION: No cause of abdominal pain identified by plain radiograph.. Dictated by: Joanna Blunt MD, PhD on 11/04/2016 at 10:40 Approved by: Joanna Blunt MD, PhD on 11/04/2016 at 10:42 View: Portable, 1 view Interpretation / Wet Read by: Interpret - Radiologist Re-Eval/Medical Decision Med Decision/Clinical Course Med Decision/Clinical Course: 26-year-old female history of hypochondria, GERD, chronic abdominal pain and nausea vomiting presenting with her typical chronic abdominal pain nausea vomiting. Patient did have one episode of emesis here. Her labs are unremarkable. Her urine is negative. Her abdominal pain resolved with antiemetics here. His vomiting resolved as well. Abdomen soft nontender no rebound or guarding. She is safe for discharge home. She may benefit from GI referral given her chronic abdominal pain and nausea vomiting. Also recommend she follow up with primary doctor in several days. Return precautions given. Re-Evaluation/Progress : Time of Eval: 11:02 Re-Evaluation/Progress Note: Discussed plan for discharge. Patient understands and agrees with plan. All questions addressed at this time. Counseled Regarding: Diagnosis, Lab results, Need for follow-up, When/why to return to ED Discharge & Departure Primary Impression: Chronic abdominal pain Additional Impression: Nausea and vomiting in adult Disposition: Home Discharge Condition All VS Reviewed: Yes Condition: Improved Additional Instructions: Thank you for entrusting us with your care. Your lab results and X-ray were normal. Your exam was reassuring. Your symptoms have resolved. Follow up with your primary doctor within 1-2 days. Follow up with a GI doctor to discuss your chronic abdominal pain. Drink plenty of clear fluids and eat a bland diet. Progress diet as tolerated. Return to the emergency department for high fevers, bloody vomit, bloody stools , worsening abdominal pain, pain with urination, or any other symptoms. Referrals: OLGA SUNG (PCP) Wade Arce MD Attestation Portions of this note were transcribed by Ba Peters. I, Dr. Murphy personally performed the history, physical exam and medical decision-making; I reviewed and confirmed the accuracy of the information in the transcribed note. Signed by: Alverto Wiseman, 11/04/16 at 1105 copies to: OLGA SUNG Ben M MD Nov 04, 2016 08:56 BA PETERS Nov 04, 2016 09:31
[2016-11-04] MEDS ORDERED: RANI15SY PO (09:15)
[2016-11-04] MEDS ORDERED: ONDA-54 PO (09:15)
[2016-11-04] MEDS ORDERED: 0.9% Sodium Chloride 1,000 ML IV ONE (09:31)
[2016-11-04] MEDS ORDERED: LidocaineVisc 2%:Antacid 1:1 10 mL Syringe PO ONE (09:35)
[2016-11-04] MEDS ORDERED: Ondansetron 2 mg/mL 2 mL Inj IVPUSH PRN (09:35)
[2016-11-04] MEDS ORDERED: MetoCLOpramide 5 mg/mL 2 mL Inj IVPUSH ONE (09:35)
[2016-11-04 09:43] LABS: Mean Corpuscular Hemoglobin 26.6 pg (27.0-35.0)
[2016-11-04 09:44] LABS: BASOPHILS % (AUTO) 0.4 % (0-3); EOSINOPHILS % (AUTO) 2.8 % (0-5); MONOCYTES % (AUTO) 10.5 % (4-12); NEUTROPHILS % (AUTO) 55.3 % (40-74); Platelet Count 240 bil/L (150-400)
[2016-11-04 09:53] LABS: Magnesium 1.9 mg/dL (1.6-2.6)
[2016-11-04 10:17] LABS: APPEARANCE,URINE HAZY (CLEAR,HAZY); COLOR,URINE YELLOW (YELLOW)
[2016-11-04 10:18] LABS: OCCULT BLOOD,URINE NEGATIVE (NEGATIVE); UROBILINOGEN,URINE NORMAL (NORMAL)
--- NOTE | 2016-11-04 10:44 | DRSVH ---
PROCEDURE: X-RAY ACUTE ABDOMINAL SERIES ([id number]) INDICATIONS: abd pain TECHNIQUE: One view chest and two views of the abdomen were acquired. COMPARISON: [facility], CR, XR ABD ACUTE SERIES 3VW, 07/17/2016, 12:51. FINDINGS: Surgical changes and devices: None. Chest: Lungs are clear. Heart size is normal. No pleural effusions. No pneumoperitoneum. Abdomen: Bowel gas pattern is normal. No suspicious calcifications. Visualized solid organ contour s appear normal. Bones: No suspicious bony lesions. IMPRESSION: No cause of abdominal pain identified by plain radiograph.. Dictated by: Joanna Blunt MD, PhD on 11/04/2016 at 10:40 Approved by: Joanna Blunt MD, PhD on 11/04/2016 at 10:42
[2016-11-04 11:12] VITALS: BP 112/62; PULSE 66; RESP 16; O2SAT 97
[2016-11-04] MEDS ORDERED: POLY17PO6 PO (11:14)
== END 2016-11-04 11:13 | disposition home or self-care (01) ==
LOC: SED 08:47
DX: R10.84 Generalized abdominal pain (principal); G89.29 Other chronic pain; R11.2 Nausea with vomiting, unspecified; K59.00 Constipation, unspecified; M54.9 Dorsalgia, unspecified; R30.0 Dysuria; J45.909 Unspecified asthma, uncomplicated; K21.9 Gastro-esophageal reflux disease without esophagitis; F41.9 Anxiety disorder, unspecified; Z88.0 Allergy status to penicillin; Z91.040 Latex allergy status
CPT/HCPCS: 36415; 74022; 80053; 81000; 81025; 83690; 83735; 85025; 87086; 87088; 96361; 96374; 96375; 99285; J2405; J2765; J7030

== ENCOUNTER 2016-12-11 08:32 | Emergency (ER) | payer OTHER ==
[~2016-12-11 08:32] MED LIST changes: +ONDA-54 PO; +POLY17PO6 PO; +RANI15SY PO
[2016-12-11 08:34] VITALS: BP 117/81; PULSE 72; RESP 16; O2SAT 99
--- NOTE | 2016-12-11 08:48 | ED.REPORT ---
HPI-General Illness Date of Service Dec 11, 2016 ED Provider: Dr. Vickers Pt is a 26 year old female with a history of hypochondria, GERD, and frequent ED visits for similar symptoms who presents to the ED complaining of hematemesis onset 3 days ago. The pt has been experiencing nausea and vomiting for two months, but noticed blood in her vomit in the last three days. The pt c/ o associated SOB, abdominal pain, decreased appetite and multiple episodes of syncope after vomiting. She also complains of an itching rash on her abdomen that she noticed two days ago. The pt denies diarrhea, lower extremity edema or chest pain. She has an appointment with gastroenterology on 12/16/2016. Nursing Notes Stated Complaint: VOMITING,RASH Chief Complaint: Female Abdominal Pain Nursing Notes Reviewed: Yes Allergies: Coded Allergies: Penicillins (Verified Allergy, Severe, Anaphylaxis, 12/11/16) latex (Verified Allergy, Intermediate, rash, 12/11/16) diphenhydramine (Verified Allergy, Unknown, Rash, 12/11/16) Scheduled Citalopram (Citalopram) 20 Mg Tablet 20 MG PO DAILY Ferrous Sulfate (Ferrous Sulfate) 325 Mg Tablet 325 MG PO DAILY Folic Acid (Folic Acid) 1 Mg Tablet 1 MG PO DAILY Olanzapine (Olanzapine) 5 Mg Tablet 5 MG PO DAILY Omeprazole (Omeprazole) 20 Mg Capsule.dr 20 MG PO DAILY Ondansetron (Ondansetron) 8 Mg Tablet 8 MG PO TID Ondansetron ODT (Ondansetron ODT) 8 Mg Tab.rapdis 8 MG PO Q8H Ondansetron ODT (Ondansetron ODT) 8 Mg Tab.rapdis 8 MG PO Q8H Phenazopyridine (Phenazopyridine #3PP) 200 Mg Tab 200 MG PO Q8H Polyethylene Glycol 3350 (Miralax) 17 Gm Powd.pack 17 GM PO DAILY Ranitidine Liquid (Ranitidine Liquid) 15 Mg/1 Ml Syrup 10 ML PO BID Triamcinolone Acet (Triamcinolone Acetonide Cream) 1 Applic/0.25 Gm Cr 1 APPLIC EXT BID Scheduled PRN Calcium Carbonate (Tums) 500 Mg Tab.chew 500 MG PO QID PRN PRN For Dyspepsia or Heartburn Ondansetron ODT (Zofran ODT) 4 Mg Tablet 4 MG PO Q4H PRN PRN For Nausea Prochlorperazine Maleate (Prochlorperazine) 5 Mg Tablet 5 MG PO Q8 PRN PRN For Nausea/Vomiting Prochlorperazine Maleate (Compazine Suppository) 25 Mg Supp.rect 25 MG RC Q8 PRN PRN For Nausea/Vomiting Promethazine (Promethazine) 25 Mg Tablet 25 MG PO Q6H PRN PRN For Nausea General Time Seen by MD: 08:47 Chief Complaint Other (Hematemesis) Hx Obtained From: Patient Arrived By: Walk-in Sudden in Onset?: No Onset Occurred: 3 days ago Recent Healthcare: No recent hospitalization, Recent doctor visit Similar Sx Previous: Yes Past Medical History Past Medical History Frequent ED visits to different hospitals for nausea, vomiting From patient: "Memory loss" Claims to be on thyroid medications GERD Meningitis Asthma Hypochondria Past Surgical History 2013 Family History Noncontributory Smoking History Never Smoker Social History Alcohol Use: Denies alcohol use Drug Use: Denies drug use Other Social History: Frequent ED visitor, Ambulatory Status Independent Review of Systems decreased appetite denies lower extremity edema Full Review of Systems Respiratory: Reports: Shortness of breath, Denies: Non-productive cough Cardiovascular: Denies: Chest pain GI: Reports: Abdominal pain, Hematemesis, Nausea, Vomiting, Denies: Diarrhea Musculoskeletal: Denies: Back pain, Neck pain Skin: Reports Rash (abdomen) Neurologic: Reports: Syncope (multiple episodes reported after vomiting) Complete sys rev & neg: except as marked. Physical Exam Vital Signs Vital Signs Date Time Temp Pulse Resp B/P Pulse Ox O2 Delivery O2 Flow Rate FiO2 12/11/16 12:05 36.4 62 14 112/79 97 Room Air 12/11/16 11:34 36.4 62 14 112/79 97 Room Air 12/11/16 08:34 36.2 72 16 117/81 99 Room Air Initial VS: Reviewed General/Constitutional: Awake, Alert, No acute distress Head / Eyes: Atraumatic, Normocephalic, PERRL, EOMI ENT: Atraumatic, Airway patent, Mucous membranes moist Neck: Atraumatic, Supple, Full range of motion Respiratory / Chest: Atraumatic, Breath sounds NL, Breath sounds = bilat, No respiratory distress Cardiovascular: Heart rate NL, Regular rhythm, Heart sounds NL, No murmurs Abdomen: Atraumatic, Soft, No guarding, No rebound Epigastric tenderness Back: Atraumatic, Inspection NL, Full range of motion Upper Extremities Upper Extremity / MS: Atraumatic, Inspection NL, Full range of motion Lower Extremity / Pelvis / MS: Atraumatic, Inspection NL, Full range of motion , No swelling, No edema Skin: Warm, Dry, Intact Confluent papules over LLQ with excoriations Neurologic: Oriented X3, Speech NL, No motor deficits, No sensory deficits Psychiatric: Affect NL, Mood NL Interpretation & Diagnostics Lab Results Interpretation Result Diagram: 12/11/16 0949 12/11/16 0949 Test 12/11/16 09:30 12/11/16 09:49 Urine Color Straw (YELLOW) Urine Appearance Clear (CLEAR,HAZY) Urine pH 6.0 (5.0-8.0) Urine Specific [place] 1.003 (1.003-1.035) Urine Protein Negativemg/dL (NEG,TRACE) Urine Glucose (UA) Negativemg/dL (NEGATIVE) Urine Ketones Negativemg/dL (NEGATIVE) Urine Occult Blood Negative (NEGATIVE) Urine Nitrite Negative (NEGATIVE) Urine Bilirubin Negative (NEGATIVE) Urine Urobilinogen Normalmg/dL (NORMAL) Urine Leukocyte Esterase Negative (NEGATIVE) Urine RBC 0-2/hpf (0-2) Urine WBC 0-5/hpf (0-5) Urine Epithelial Cells Few/hpf (NONE-MOD) Urine Crystals None seen (NONE SEEN) Urine Bacteria None/hpf (NONE-FEW) Urine Hyaline Casts None/lpf (NONE) Urine Granular Casts None seen (NONE SEEN) Urine Waxy Casts None seen (NONE SEEN) Urine Red Blood Cell Casts None seen (NONE SEEN) Urine White Blood Cell Casts None seen (NONE SEEN) Urine Mucus None seen (None Seen) Urine Trichomonas None seen (NONE SEEN) Urine Yeast None (NONE SEEN) Urinalysis Comment None Urine Culture Reflexed Not indicated White Blood Count 5.8th/mm3 (3.8-10.1) Red Blood Count 4.65mil/mm3 (3.90-5.20) Hemoglobin 12.2g/dL (12.0-15.6) Hematocrit 37.7% (35.0-46.0) Mean Corpuscular Volume 81.1fL (81-100) Mean Corpuscular Hemoglobin 26.2pg (27.0-35.0) Mean Corpuscular Hemoglobin Concent 32.4% (32.0-37.0) Red Cell Distribution Width 14.5% (12.3-15.4) Platelet Count 231bil/L (150-400) Neutrophils (%) (Auto) 49.5% (40-74) Lymphocytes (%) (Auto) 37.3% (14-46) Monocytes (%) (Auto) 11.1% (4-12) Eosinophils (%) (Auto) 1.6% (0-5) Basophils (%) (Auto) 0.3% (0-3) Sodium Level 140mEq/L (134-144) Potassium Level 4.2mEq/L (3.5-5.2) Chloride Level 103mEq/L (97-108) Carbon Dioxide Level 25mmol/L (18-29) Blood Urea Nitrogen 12mg/dL (6-20) Creatinine 0.63mg/dL (0.57-1.00) Estimat Glomerular Filtration Rate 165mL/min (>59) Glucose Level 90mg/dL (60-99) Calcium Level 9.3mg/dL (8.5-10.1) Magnesium Level 2.0mg/dL (1.6-2.6) Total Bilirubin 0.2mg/dL (0.0-1.2) Aspartate Amino Transf (AST/SGOT) 19U/L (0-50) Alanine Aminotransferase (ALT/SGPT) 27U/L (0-32) Alkaline Phosphatase 66U/L (25-150) Total Protein 6.9g/dL (6.4-8.4) Albumin 4.0g/dL (3.4-5.0) Lipase 39U/L (13-60) X-Ray Abdominal Interpretation IMPRESSION: No radiographic findings for epigastric pain. Dictated by: Porsha Rodriguez M.D. on 12/11/2016 at 11:35 Approved by: Porsha Rodriguez M.D. on 12/11/2016 at 11:36 Interpretation / Wet Read by: Interpret - Radiologist Re-Eval/Medical Decision Med Decision/Clinical Course Vital signs, labs, and abdominal x-ray were normal. UA was negative. Pain/ nausea resolved with Compazine and Zofran 1. She has follow-up with gastroenterology set up for next week. I have encouraged her to keep the appointment. She has a small amount of dermatitis on her left lower abdomen that may be worsening due to excoriation. Symptoms improved with application of triamcinolone 0.1% cream and patient will continue to apply this twice daily until rash is gone Source of Hx: Old records Time of Eval: 11:22 Patient Status: Condition improved Re-Evaluation/Progress Note: Pt rechecked. Discussed all results. Pt is feeling improved. Informed pt of plan for discharge. Pt understands and agrees with plan. F/U instructions and RTER warnings given. All questions addressed. Counseled Regarding: Diagnosis, Lab results, Need for follow-up, When/why to return to ED Discharge & Departure Primary Impression: Abdominal pain Abdominal location: epigastric Qualified Code: R10.13 - Epigastric pain Additional Impressions: Nausea and vomiting in adult Rash and nonspecific skin eruption Disposition: Home Discharge Condition All VS Reviewed: Yes Condition: Stable Patient Instructions: Acute Abdominal Pain (ED) Additional Instructions: Thank you for trusting us with your care today. There are no dangerous causes for your nausea/vomiting/abdominal pain found. I am glad that you are feeling better after receiving Compazine. I am discharging you home with a small prescription of this medication. I would like you to follow up with your primary care provider early next week for a recheck/follow-up if you are not doing better. Please keep your point with Dr. Arce on 12/17 for further GI evaluation [facility] Scribe Attestation Portions of this note were transcribed by Shalini Neal and Sarabjit Sheldon. I, Dr. Vickers personally performed the history, physical exam and medical decision -making; I reviewed and confirmed the accuracy of the information in the transcribed note. copies to: [facility] Gary R DO Dec 11, 2016 08:48 Shalini Neal Dec 11, 2016 09:07 SARABJIT SHELDON Dec 11, 2016 12:43 recheck/follow-up if you are not doing better. Please keep your point with Dr. Arce on 12/17 for further GI evaluation Referrals: [facility] Scribe Attestation Portions of this note were transcribed by Shalini Neal and Sarabjit Sheldon. I, Dr. Vickers personally performed the history, physical exam and medical decision -making; I reviewed and confirmed the accuracy of the information in the transcribed note. copies to: [facility] OL[facility] EASTMAN Gary R DO Dec 11, 2016 08:48 Shalini Neal Dec 11, 2016 09:07 SARABJIT SHELDON Dec 11, 2016 12:43
[2016-12-11] MEDS ORDERED: 0.9% Sodium Chloride 1,000 ML IV ONE (09:09)
[2016-12-11] MEDS ORDERED: LidocaineVisc 2%:Antacid 1:1 10 mL Syringe PO ONE (09:10)
[2016-12-11] MEDS ORDERED: ProchlorPERazine 5 mg/mL 2 mL Inj IVPUSH ONE (09:10)
[2016-12-11] MEDS ORDERED: Ondansetron 2 mg/mL 2 mL Inj IVPUSH PRN (09:10)
[2016-12-11] MEDS ORDERED: Pantoprazole 4 mg/mL 10 mL Inj IVPUSH ONE (09:10)
[2016-12-11 10:02] LABS: BASOPHILS % (AUTO) 0.3 % (0-3); EOSINOPHILS % (AUTO) 1.6 % (0-5); MONOCYTES % (AUTO) 11.1 % (4-12); Mean Corpuscular Hemoglobin 26.2 pg (27.0-35.0); Mean Corpuscular Volume 81.1 fL (81-100); NEUTROPHILS % (AUTO) 49.5 % (40-74); Platelet Count 231 bil/L (150-400)
[2016-12-11 10:39] LABS: APPEARANCE,URINE CLEAR (CLEAR,HAZY); COLOR,URINE STRAW (YELLOW); OCCULT BLOOD,URINE NEGATIVE (NEGATIVE); UROBILINOGEN,URINE NORMAL (NORMAL)
[2016-12-11 11:34] VITALS: BP 112/79; PULSE 62; RESP 14; O2SAT 97
--- NOTE | 2016-12-11 11:38 | DRSVH ---
PROCEDURE: X-RAY ACUTE ABDOMINAL SERIES ([id number]) INDICATIONS: epigastric abdominal pain TECHNIQUE: One view chest and two views of the abdomen were acquired. COMPARISON: [facility], CR, XR ABD ACUTE SERIES 3VW, 11/04/2016, 10:14. FINDINGS: Surgical changes and devices: None. Chest: Lungs are clear. Heart size is normal. No pleural effusions. No pneumoperitoneum. Abdomen: Bowel gas pattern is normal. No suspicious calcifications. Visualized solid organ contour s appear normal. Bones: No suspicious bony lesions. IMPRESSION: No radiographic findings for epigastric pain. Dictated by: Porsha Rodriguez M.D. on 12/11/2016 at 11:35 Approved by: Porsha Rodriguez M.D. on 12/11/2016 at 11:36
[2016-12-11] MEDS ORDERED: PROC25SU30 RC (11:51)
[2016-12-11 12:05] VITALS: BP 112/79; PULSE 62; RESP 14; O2SAT 97
== END 2016-12-11 12:06 | disposition home or self-care (01) ==
LOC: SED 08:32
DX: R10.13 Epigastric pain (principal); R11.2 Nausea with vomiting, unspecified; R21 Rash and other nonspecific skin eruption; K21.9 Gastro-esophageal reflux disease without esophagitis; Z88.0 Allergy status to penicillin; Z88.8 Allergy status to other drugs, medicaments and biological substances; Z91.040 Latex allergy status
CPT/HCPCS: 36415; 74022; 80053; 81000; 81025; 83690; 83735; 85025; 96361; 96374; 96375; 99285; J0780; J7030; S0164

== ENCOUNTER → 2016-12-22 | Day surgery (SDC) | payer OTHER ==
[~2016-12-22] VITALS: Ht 167.6 cm; Wt 108.9 kg
[~2016-12-22] MED LIST changes: +0.9% Sodium Chloride 1,000 ML IV PRN; +Lactated Ringer's 1,000 ML IV SCH; +MetoCLOpramide 5 mg/mL 2 mL Inj IVPUSH PRN; +Ondansetron 2 mg/mL 2 mL Inj IVPUSH PRN; +PROC25SU30 RC; +Propofol 10,000 mCg/mL 20 mL Inj ONE; +Sodium Chloride LOK Flush 10 mL Syringe IV PRN; +fentaNYL-PF 50 mCg/mL 2 mL Inj IVPUSH PRN
[2016-12-22 07:39] VITALS: BP 112/70; PULSE 70; RESP 14; O2SAT 98
[2016-12-22 08:25] VITALS: BP 142/82; PULSE 92; RESP 16; O2SAT 98
[2016-12-22 08:37] VITALS: BP 91/75; PULSE 82; RESP 14; O2SAT 99
--- NOTE | 2016-12-22 08:58 | PCM.HPANE ---
Patient Data Surgeon Admitting Provider: Attending Provider:Wade Arce MD Primary Care Physician:[facility] JaymieVandana Bazan Other Provider: Reason for Visit Hematemesis Ht/WT & BMI Height (Feet): 5 Height (Inches): 6 Weight (Kilograms): 108.86 Body Mass Index 38.00 Allergies Coded Allergies: Penicillins (Verified Allergy, Severe, Anaphylaxis, 12/11/16) latex (Verified Allergy, Intermediate, rash, 12/11/16) diphenhydramine (Verified Allergy, Unknown, Rash, 12/11/16) Past Anesthesia History Anesthesia History: Denies:: Abnormal Airway, Anesthesia Reactions, Difficult Intubation, Fam Anesthesia Reaction, Fam Malignant Hypertherm, Malignant Hyperthermia Diabetes History Hx Diabetes?: No MRSA MRSA: No Medications Active Scripts Prochlorperazine Maleate (Compazine Suppository)25 Mg Supp.rect25 Mg RC Q8 PRN For Nausea/Vomiting #10 SUPP.RECT Ref 0 Prov:Luis Antonio Vickers DO 12/11/16 Polyethylene Glycol 3350 (Miralax)17 Gm Powd.pack17 Gm PO DAILY #1 BOTTLE Prov:Sreekanth Murphy MD 11/04/16 Prochlorperazine Maleate (Prochlorperazine)5 Mg Tablet5 Mg PO Q8 PRN For Nausea/ Vomiting #10 TABLET Ref 0 Prov:Boston Beckett PA-C 10/25/16 Triamcinolone Acet (Triamcinolone Acetonide Cream)1 Applic/0.25 Gm Cr1 Applic EXT BID #60 GM Ref 0 Prov:Sreekanth Murphy MD 10/20/16 Calcium Carbonate (Tums)500 Mg Tab.vlwo048 Mg PO QID PRN For Dyspepsia or Heartburn 30 Days Prov:Sreekanth Murphy MD 10/20/16 Omeprazole 20 Mg Capsule.dr20 Mg PO DAILY #30 CAPSULE Ref 0 Prov:Sreekanth Murphy MD 10/20/16 Promethazine 25 Mg Gemhne35 Mg PO Q6H PRN For Nausea #15 TABLET Ref 0 Prov:Felix Lay MD 10/11/16 Ondansetron ODT (Zofran ODT)4 Mg Tablet4 Mg PO Q4H PRN For Nausea #2 TABLET Prov:Lalo Anglin DO 08/23/16 Phenazopyridine (Phenazopyridine #3PP)200 Mg Hpk417 Mg PO Q8H #9 TAB Prov:Shabnam Tsai MD 08/12/16 Ondansetron ODT 8 Mg Tab.rapdis8 Mg PO Q8H #30 TABLET Prov:Shabnam Tsai MD 08/12/16 Ondansetron ODT 8 Mg Tab.rapdis8 Mg PO Q8H #10 TABLET Prov:Shabnam Tsai MD 07/17/16 Reported Medications Ranitidine Liquid 15 Mg/1 Ml Syrup10 Ml PO BID Ref 0 11/04/16 Ondansetron 8 Mg Tablet8 Mg PO TID 11/04/16 Olanzapine 5 Mg Tablet5 Mg PO DAILY 07/17/16 Citalopram 20 Mg Jbuaju19 Mg PO DAILY 07/17/16 Ferrous Sulfate 325 Mg Nacfdu411 Mg PO DAILY 07/17/16 Folic Acid 1 Mg Tablet1 Mg PO DAILY 07/17/16 History History of ENT Problems?: No HEENT History: Positive for:: Dysphagia Denies:: Abnormal Airway Cataracts Difficult Intubation Glaucoma Hearing Problem Sinus Problem TMJ Denture Type: None Teeth Condition: Missing Teeth Hx of Heart Problems?: No Cardiovascular History: Denies:: Congestive Heart Failure Hypertension Hx of Respiratory Problem?: Yes Respiratory History: Positive for:: Asthma (inhaler as needed) Pneumonia Denies:: Tuberculosis Hx Neurologic Problems?: Yes (reports history of brain damage and memory loss) Neurological History: Denies:: CVA Hx of GI Problems?: Yes Other GI Pertinent History: vomited up dark in color blood seizure when 19 years old Hx of Problems?: No HX of Peritoneal Dialysis: No Female Hx: Denies:: Currently Hx Musculoskeletal Problems?: No Hx Surgeries?: Yes (C SECTION) Hx Any Other Health Problems?: Yes Hx Diabetes: No Other Pertinent History: hypothryroidism Hx Alcohol Use: NoHx Substance Use: No Smoking Status: Never Smoker Stop/Bang Treated for Sleep Apnea?: Yes Do You Have a CPAP Machine?: No S-Snoring: Do You Snore Loudly: Yes T-Tired: feel tired, fatigued: No P-Blood Pressure: treated: No B- Body Mass Index > 35 kg/m2: Yes A- Age over 50: No N- Neck Large Circumference: No G- Gender Male: No Risk Assessment Category Category 1A: Patient has history of documented sleep apnea, and HAS NOT received any narcotic, sedative or anesthesia administration during this stay. Category 1B: Patient has history of documented sleep apnea, and HAS received any narcotic , sedative or anesthesia administration during this stay Category 2: Patient has SUSPECTED Obstructive Sleep Apnea, and HAS received any narcotic , sedative or anesthesia administration during this stay. Category 3: Patient has SUSPECTED Obstructive Sleep Apnea and HAS NOT received narcotic, sedative or anesthesia administration during this stay. Category 4: Outpatient in Procedural Areas with known sleep apnea or who screen positive for High Risk via the STOP/BANG questionnaire. Exam Exam Vital Signs Vital Signs Date Time Temp Pulse Resp B/P Pulse Ox O2 Delivery O2 Flow Rate FiO2 12/22/16 07:39 70 14 112/70 98 Room Air General Appearance: Alert, Oriented X3, Cooperative, No Acute Distress HEENT/AIRWAY: MP 2, Neck Movement (FROM), Mouth Opening (3 fbmo) Lungs: Clear to Auscultation, Normal Air Movement Heart: Exam Unremarkable, Regular Rate/Rhythm, No Murmurs/Rubs/Gallops Plan Impression Patient chart reviewed, patient interviewed and anesthestic plan with risks, benefits, and alternatives discussed, and informed consent obtained. NPO per Anesth. Guidelines: Yes ASA Physical Status: ASA2 Mod Systemic Disease Anesthetic Plan: GA, MAC Bene/Risks/Altern/Consents: Yes HP Complete Prior to Induction: Yes Peter Andres MD Dec 22, 2016 07:54
--- NOTE | 2016-12-22 09:08 | ENDO ---
[address] [address] ENDOSCOPY PROCEDURE PATIENT: DINO LUIS : 1990 MR#: [id number] ADMIT: 12/22/2016 JOB ID: [id number] PROCEDURE: Esophagogastroduodenoscopy with biopsy. INDICATIONS: A 26-year-old female with intermittent nausea, vomiting. She has even had some hematemesis. Her underlying main problem appears to be related to obstipation. She, however, reports that she has had some improvement and even had a normal bowel movement this morning. EQUIPMENT: [id number]. SEDATION: Monitored anesthesia as provided by Dr. Peter Andres. COMPLICATIONS: None identified. PROCEDURE INFORMATION: After the risks and benefits were explained, written and verbal informed consent was obtained. The patient was brought into the endoscopy suite and placed into the left lateral decubitus position. Sedation was achieved as above. The scope introduced into the mouth through the bite block, and advanced to the second portion of the duodenum. The scope was slowly withdrawn to carefully examine the mucosa for any defects or lesions. Retroflexed views were accomplished in the stomach. The stomach was decompressed, the scope removed from the patient who tolerated the procedure well. FINDINGS: 1. Duodenum: This appeared normal from the bulb through to the second portion. 2. Stomach: Mild diffuse gastropathy. Random biopsy was acquired for exclusion of Helicobacter or other pathology. No ulcers. No outlet obstruction. No retained food debris. Retroflexed views of the LES were unremarkable. 3. Esophagus: The squamocolumnar junction correlated with the top of the gastric folds. The GEJ was at about 40 cm from the incisors. There was a small focus of LA grade A erosive esophagitis. No other pathology appreciated in the esophagus. Very subtle sliding hiatal hernia appreciated. ENDOSCOPIC DIAGNOSES: 1. Subtle sliding hiatal hernia. 2. LA grade A erosive esophagitis. 3. Gastropathy. RECOMMENDATIONS: 1. Await histopathology. 2. If Helicobacter is found, it will need to be eradicated with standard triple therapy. 3. The patient is otherwise directed to follow the recommendations I made in the clinic in terms of managing her obstipation. 4. Follow up in the office in the next 3-4 weeks to review overall response. CC: Dariusz Go DO
--- NOTE | 2016-12-22 13:47 | PCM.ANEP1 ---
Post Anesthesia PACU Phase 1 Assessment Vital Signs Vital Signs Date Time Temp Pulse Resp B/P Pulse Ox O2 Delivery O2 Flow Rate FiO2 12/22/16 08:37 82 14 91/75 99 Room Air 12/22/16 08:25 92 16 142/82 98 Room Air 12/22/16 07:39 70 14 112/70 98 Room Air Anesthetic Administered: GA, MAC Level of Alertness: Awake, talking STOUT's with Equal Strength: Yes Pain: No Nausea or Vomiting: No CV Function & Hydration Stable: Yes Airway Device: n/a Oxygen Delivery: Room Air Lungs: Clear to Auscultation, Normal Air Movement Dermatome Level: Full Sensation PACU Phase 2 Assessment Complications: No Follow up Care: N/A Patient Instructions Provided: N/A Peter Andres MD Dec 22, 2016 13:47
--- NOTE | 2016-12-24 12:07 | PATH ---
SURGICAL PATHOLOGY Attending Physician:Gage Lozano CASE STATUS: Signed Out PATIENT NAME: DINO LUIS PID: [id number] : 1990 DATE COLLECTED:12/22/2016 19:29 SPECIMEN: Gastric, Biopsy CLINICAL HISTORY: 1). GASTRIC BIOPSY RULE OUT H PYLORI FINAL DIAGNOSIS: Stomach, Biopsy: Body-type mucosa with no diagnostic abnormality. Negative for Helicobacter by immunohistochemistry. Negative for intestinal metaplasia. Negative for dysplasia and malignancy. ICD10: R11 GROSS DESCRIPTION: The specimen is received in one formalin filled container labeled with the patient's name, sublabeled "gastric" and consists of a 0.2 x 0.2 x 0.2 CM portion of tissue which is entirely submitted in one cassette. 12/22/2016DC MICRO DESCRIPTION: An immunohistochemical stain was performed to evaluate for Helicobacter organisms and is negative. A control stain showed appropriate reactivity. * This test was developed and its performance characteristics determined by [facility]. It has not been cleared or approved by the U.S. Food and Drug Administration. The FDA has determined that such clearance or approval is not necessary. This test is used for clinical purposes. It should not be regarded as investigational or for research. ICD-9 CODES: CPT CODES: 1: 60045, 44814 Electronically Signed Out Kathy Mathis MD [facility] [address], [place] [address] Technical component performed at [facility], [facility] [address], [place], [address]
== END | disposition home or self-care (01) ==
LOC: END 00:16
PROVIDERS: ATTEND Internal Medicine Gastroenterology
DX: K20.8 Other esophagitis (principal); K44.9 Diaphragmatic hernia without obstruction or gangrene; K31.9 Disease of stomach and duodenum, unspecified; K92.0 Hematemesis; R11.2 Nausea with vomiting, unspecified; K59.00 Constipation, unspecified; R13.10 Dysphagia, unspecified; J45.909 Unspecified asthma, uncomplicated; E03.9 Hypothyroidism, unspecified; E66.01 Morbid (severe) obesity due to excess calories; Z68.41 Body mass index [BMI] 40.0-44.9, adult
CPT/HCPCS: 43239; 88305; 88342; J2704; J7030